=== PATIENT | male | born 1940 | race Caucasian/White ===

== ENCOUNTER 2016-07-09 14:58 | Inpatient (IN) | payer OTHER, BC ==
[2016-07-09] MEDS ORDERED: ACETAMINOPHEN 325 MG TAB PO PRN (17:47)
[2016-07-09] MEDS ORDERED: ONDANSETRON DISINTEGRATING 4 MG TAB PO PRN (17:47)
[2016-07-09] MEDS ORDERED: ONDANSETRON 4 MG/2 ML VIAL IVP PRN (17:47)
[2016-07-09] MEDS: NS 1,000 ML IV SCH (18:02)
--- NOTE | 2016-07-09 18:42 | GHP ---
[f rep st] HISTORY AND PHYSICAL DATE OF ADMISSION: 07/09/2016 CHIEF COMPLAINT: Weakness, elevated creatinine. HISTORY OF PRESENT ILLNESS: This is a 76-year-old male who [facility]. Sukhjinder lau has a history of metastatic melanoma and has been getting immunotherapy. He had this last week. E girma since then, he has been having poor p.o. intake, some diarrhea and nausea. He was seen today at the Cancer [facility]. His creatinine was 5 and sent here. He is denying any abdominal pain. He does h ave some decreased mental status here. He denies any focal weakness. No chest pain or shortness of breath. REVIEW OF SYSTEMS: A 10-point review of systems was negative. PAST MEDICAL HISTORY: 1. Malignant melanoma. 2. History of coronary artery disease, status post stenting a couple years ago. 3. History of pacemaker. 4. History of prostate cancer. 5. Parkinson's. SOCIAL HISTORY: No smoking. No alcohol. 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 He has a son and w royal who live in the area. FAMILY HISTORY: Mother had coronary disease at age 60. PHYSICAL EXAM: VITAL SIGNS: Afebrile. Blood pressure is 96/52, heart rate 61, oxygen saturation 97 % on room air. GENERAL: The patient is cachectic, in no apparent distress. HEENT: Nonicteric scle sayra. Extraocular movements intact. Dry mucous membranes. NECK: Supple. No thyromegaly. LUNGS: Good effort. Clear to auscultation bilaterally. CARDIOVASCULAR: Regular rate and rhythm. No murmu rs, rubs, or gallops. ABDOMEN: Positive bowel sounds. Soft, nontender, nondistended. Mild tendern ess in the lower quadrants. EXTREMITIES: No clubbing, cyanosis, or edema. SKIN: Without rash, oth erwise, intact. NEUROLOGIC: Alert and oriented, although very slow to answer questions. Looks like he might have a left facial droop. He has equal strength upper extremities. PSYCH: Normal mood. Flat affect. LABS: CBC shows a slight white count, at about an 11, hemoglobin 16, sodium 140, potassium 5.5, BUN is 105. Creatinine is 5.3. Total bilirubin was 1.6. Otherwise, LFTs are normal. ASSESSMENT: This is a 76-year-old male, who is undergoing chemotherapy due to metastatic melanoma, w anant presents with acute renal failure due to dehydration. PLAN: 1. Acute renal failure. This is most likely due to dehydration. Will give IV fluids. If his creat inine is not improving in the next day, could consider ultrasound. Would consider ultrasound. He do es have a history of prostate cancer. 2. Mild hyperkalemia that should improve with fluids. Will hold his JAQUELINE inhibitor. 3. Possible left facial droop. I think this could still be due to severe dehydration. We will see how he is in the next 12 hours. If there is no improvement, would consider MRI. 4. History of coronary artery disease. This appears to be quiescent. 5. Pacemaker. 6. Parkinson's. 7. Malignant melanoma. /[id number]/MODL
[2016-07-09] MEDS ORDERED: TEARS/DEXTRAN 70/HYPROMELLOSE 15 ML OPHT.BTL EACHEYE PRN (21:13)
[2016-07-09] MEDS: BRIMONIDINE/TIMOLOL 5 ML OPHT.BTL EACHEYE SCH (22:37)
[2016-07-09] MEDS: LATANOPROST 0.005% 2.5 ML OPHT DROPS EACHEYE SCH (22:38)
[2016-07-09] MEDS: DORZOLAMIDE 2% OPTH DROPS OP SCH (23:15)
[2016-07-09] MEDS: HEPARIN 5,000 UNIT/0.5 ML SYR SC SCH ×2 (23:15→23:27)
[2016-07-09] MEDS: BACLOFEN 10 MG TAB PO PRN (23:30)
[2016-07-10] MEDS: HEPARIN 5,000 UNIT/0.5 ML SYR SC SCH ×3 (05:19→21:26)
[2016-07-10] MEDS: NS 1,000 ML IV SCH (05:19)
[2016-07-10 05:59] LABS: ANION GAP 19 mEq/L (8-16); CALCIUM 7.9 mg/dL (8.5-10.4); CARBON DIOXIDE 10 mEq/l (22-31); CHLORIDE 112 mEq/L (97-110); CREATININE 3.7 mg/dL (0.7-1.3); GLOMERULAR FILTRATION RATE 16; GLUCOSE 50 mg/dL (70-100); MAGNESIUM 2.5 mg/dL (1.6-2.3); POTASSIUM 5.4 mEq/L (3.5-5.2); SODIUM 141 mEq/L (134-144)
[2016-07-10] MEDS ORDERED: D50W 25 GM/50 ML SYR IVP ONE (07:30)
[2016-07-10] MEDS: CETIRIZINE 10 MG TAB PO SCH (08:39)
[2016-07-10] MEDS: CARVEDILOL 25 MG TAB PO SCH ×2 (08:39→17:20)
[2016-07-10] MEDS: FOLIC ACID 1 MG TAB PO SCH (08:39)
[2016-07-10] MEDS: PSYLLIUM METAMUCIL 1 PKT PO SCH (08:39)
[2016-07-10] MEDS: DORZOLAMIDE 2% OPTH DROPS OP SCH ×3 (08:39→21:26)
[2016-07-10] MEDS: BRIMONIDINE/TIMOLOL 5 ML OPHT.BTL EACHEYE SCH ×2 (08:40→20:29)
[2016-07-10] MEDS ORDERED: NS 1,000 ML IV ONE (11:24)
[2016-07-10] MEDS ORDERED: D5W 1,000 ML IV SCH (12:00)
[2016-07-10] MEDS ORDERED: SODIUM BICARBONATE 100 MEQ in D5W 1,000 ML IV SCH (12:00)
--- NOTE | 2016-07-10 12:30 | GCON ---
[f rep st] CONSULTATION MEDICAL ONCOLOGY CONSULTATION. REASON FOR CONSULTATION: Patient with history of metastatic melanoma. HISTORY OF PRESENT ILLNESS: The patient is known to our department for management of his metastatic melanoma. He has recently completed 4 cycles of treatment with ipilimumab and nivolumab. The patien srinivasan's family had noted progressive lethargy and he was evaluated in the [facility] [place] office yesterday and found to be significantly volume depleted with a creatinine of 5.3. He w as therefore admitted to the hospital. At this point, I am unable to access his [facility] outpatient chart as to the deta ils of his metastatic melanoma. PAST MEDICAL HISTORY: The patient has a medical history of coronary artery disease status post intra coronary stenting, history of pacemaker placement, prostate cancer and history of Parkinson disease. SOCIAL HISTORY: He is and his former is at the bedside. His daughter has power of att orney. There is no history of tobacco or alcohol use. 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 FAMILY HISTORY: Notable for coronary artery disease - the patient's mother. REVIEW OF SYSTEMS: Difficult to obtain. Patient is somewhat uncooperative. PHYSICAL EXAMINATION: CONSTITUTIONAL: This is an elderly gentleman who looks somewhat older than hi s stated age, no acute distress. His ex- is at the bedside. He is alert but does not answer sim ple questions, and does not express ability to indicate his orientation. He is in no acute distress. HEENT: Shows pupils respond to light. Sclerae anicteric. Oral mucosa is dry but intact. CARDIAC: Shows regular rhythm. LUNGS: Alvarez clear. ABDOMEN: Soft, nontender without distention, mass or HSM. Bowel sounds normal. EXTREMITIES: Warm and well perfused. Pulses are strong. SKIN: There is markedly diminished skin t urgor. No peripheral edema. LABORATORY DATA: Today the patient has potassium of 5.4, chloride of 112, CO2 of 10, BUN of 94 and c reatinine of 3.7. His calcium is 7.9, phosphorus 6.0 and magnesium is 2.5. It should be noted that during my interview with the patient and evaluation of the patient, the physi humberto therapy team came by and the patient was fully cooperative, lucid and was able to ambulate down t he halls and respond to the physical therapist in an appropriate manner. He showed no difficulty in cooperating with his physical therapy. IMPRESSION: 1. Metastatic melanoma, having completed 4 cycles of immunotherapy with nivolumab plus ipilimumab, n ow presenting with significant volume depletion and acute renal failure effects including metabolic a cidosis, hyperphosphatemia and hyperkalemia. 2. History of coronary artery disease. 3. Status post pacemaker placement. 4. Volume depletion. 5. Discharge planning. 6. Code status. I alerted the patient's ex- to my concern about his status as to whether or not he is exhibiting more than just the effects of acute renal failure and dehydration. I will call the patient's tory perla who has power of car shakeout operator to alert her to his situation and discuss whether he would want full code status or not. He has a renal ultrasound ordered to evaluate for renal obstruction or obstructive u ropathy. It should be noted that with IV fluid, he has had urine output over the past 18 hours in [facility]. Will change his IV fluid to include bicarbonate given his metabolic acidosis. Will recheck electroly armando later today. Our service will follow in the hospital. We will try to define code status as to whether or not the patient and family would want full resusci tation should he have impairment of his vital signs. /[id number]/MODL
--- NOTE | 2016-07-10 14:54 | US ---
Complete Renal Ultrasound With Duplex Doppler Indication: Acute renal failure. Comparison: CT abdomen and pelvis, July 09, 2015. Findings: The kidneys are normal size. No hydronephrosis, shadowing renal calculi, or focal scarring . The echogenicity is normal. Renal measurements: Right: 11.4 cm long x 5.5 x 4.3 cm. Left: 10.5 cm long x 4.2 x 4.1 cm. Renal parenchymal thickness: Right: 1.2 cm Left: 1.5 cm Urinary bladder: Prevoid volume: 273 mL. Postvoid residual: Patient was unable to void upon request. Doppler Evaluation: RAR - Renal artery PSV/Aortic PSV ( Normal is < 3.5) Right: 3.1 Left: 1.89 Right kidney: Peak systolic velocities in the main renal artery as follows: Proximal: 223 cm/sec Mid: 73 cm/sec Distal: 43 cm/sec Segmental arterial flow: Normal waveforms and upstroke times. Resistive indices range between 0.71 and 0.78. Upstroke times range between 24 and 60 ms. Left kidney: Peak systolic velocities in the main renal artery as follows: Proximal: 138 cm/sec Mid: Not visualized. Distal: 73 cm/sec Segmental arterial flow: Normal waveforms and upstroke times. Resistive indices range between 0.76 and 0.79. Upstroke times range between 28 and 40 ms. Bilateral renal veins are patent with normal waveforms. Impression: 1. Moderate stenosis (approximately 50%) of the right renal artery origin evidenced by a peak systoli c velocity of 223 cm/sec. No tardus parvus waveform. 2. No evidence of left renal artery stenosis. 3. No hydronephrosis. Symmetric elevated resistive indices suggest underlying chronic medical renal d isease.
--- NOTE | 2016-07-10 14:54 | HOSPPROG ---
Hospitalist Progress Note Assessment/Plan: # [place] - suspected 2/2 volume depletion - creatinine 5.3 on admission- aggressively fluid resuscitated overnight creatinine 3.7 this morning oxygen saturations 96% on room air - continue aggressive fluid resuscitation # hyperkalemia- potassium 5.4 this morning- secondary to acute kidney injury - agree hold JAQUELINE-inhibitor - check EKG for acute changes # metabolic acidosis- secondary to acute kidney injury- worsening bicarbonate 10 this morning - agree with fluids with bicarb - follow BMP closely # metastatic melanoma- oncology following # coronary artery disease- no active chest pain - EKG previous ( personally reviewed and interpreted) 1st degree AV block with LVH and IVCD - continue home meds # prophylaxis with Lovenox # diet cardiac # disposition greater than 2 midnights as the patient requiring aggressive IV fluid resuscitation and acid-base correction I have discussed the case with the RN we will continue aggressive fluid resuscitation today and encourage oral intake Subjective: feels dehydrated Objective: Vital Signs Temp Pulse Resp BP Pulse Ox 36.6 C 69 16 118/61 96 07/10/16 13:17 07/10/16 13:17 07/10/16 13:17 07/10/16 13:17 07/10/16 13:17 07/09/16 07/10/16 07/11/16 05:59 05:59 05:59 Intake Total 1015 Output Total 300 Balance 715 - Physical Exam Constitutional: chronically ill appearing Eyes: anicteric sclera Ears, Nose, Mouth, Throat: dry mucous membranes Cardiovascular: regular rate and rhythym, systolic murmur Respiratory: no respiratory distress, no rales or rhonchi Gastrointestinal: normoactive bowel sounds Genitourinary: no bladder fullness Skin: warm, normal color Musculoskeletal: No asymmetric calves Neurologic: No AAOx3 Psychiatric: No agitated Lymph, Heme, Immunologic: no cervical LAD ICD10 Worksheet Patient Problems: Problems Problem Status Diagnosed Aortic valve insufficiency Acute Cardiomyopathy Acute Chest pain Acute
--- NOTE | 2016-07-10 15:33 | CPEKG ---
Heart Rate: 69 RR Interval: 870 P-R Interval: 241 QRSD Interval: 220 QT Interval: 552 QTC Interval: 592 P [place]: 0 QRS [place]: -85 T Wave [place]: 101 EKG Severity - ABNORMAL ECG - EKG Impression: A-V DUAL-PACED RHYTHM Electronically Signed By: Jose Sosa 10-Jul-2016 17:40:36
[2016-07-10 15:59] LABS: COLOR YELLOW; LEUKOCYTE ESTERASE,URINE NEGATIVE (NEGATIVE); NITRITE,URINE NEGATIVE (NEGATIVE)
[2016-07-10 16:18] LABS: MUCUS TRACE /lpf (NONE-1+)
[2016-07-10 17:40] LABS: BILIRUBIN-CONJUGATED 0.4 mg/dL (0.0-0.5); BILIRUBIN-UNCONJUGATED 0.6 mg/dL (0.0-1.1); TOTAL PROTEIN 6.3 g/dL (6.3-8.2)
[2016-07-10] MEDS: RED WINE 120 ML BOTTLE PO SCH (18:34)
[2016-07-10] MEDS: 1/2 NS IV SCH (20:24)
[2016-07-10] MEDS: SODIUM BICARBONATE IV SCH (20:24)
[2016-07-10] MEDS ORDERED: BIMATOPROST 0.01% 2.5 ML OPHT.BTL EACHEYE SCH (21:00)
[2016-07-10] MEDS: LATANOPROST 0.005% 2.5 ML OPHT DROPS EACHEYE SCH (21:26)
[2016-07-10] MEDS: DONEPEZIL HCL 5 MG TAB PO SCH (21:26)
[2016-07-11] MEDS: 1/2 NS IV SCH ×3 (03:34→15:23)
[2016-07-11] MEDS: SODIUM BICARBONATE IV SCH ×3 (03:34→15:23)
[2016-07-11 05:20] LABS: HEMATOCRIT 36.9 % (40.0-51.0); MEAN CELL HEMOGLOBIN 33.3 pg (27.9-34.1); MEAN CELL HEMOGLOBIN CONCENTR. 35.2 g/dL (32.4-36.7); MEAN CELL VOLUME 94.6 fL (81.5-99.8); RED BLOOD CELL COUNT 3.9 10^6/uL (4.40-6.38); RED CELL DISTRIBUTION WIDTH 11.7 % (11.5-15.2)
[2016-07-11] MEDS: HEPARIN 5,000 UNIT/0.5 ML SYR SC SCH ×3 (05:59→21:08)
[2016-07-11 09:29] LABS: ANION GAP 13 mEq/L (8-16); CALCIUM 7.6 mg/dL (8.5-10.4); CARBON DIOXIDE 18 mEq/l (22-31); CHLORIDE 111 mEq/L (97-110); CREATININE 1.9 mg/dL (0.7-1.3); GLOMERULAR FILTRATION RATE 35; GLUCOSE 80 mg/dL (70-100); POTASSIUM 4.3 mEq/L (3.5-5.2); SODIUM 142 mEq/L (134-144)
[2016-07-11] MEDS: MBX SOLN 30 ML BOTTLE PO PRN ×2 (09:43→13:52)
[2016-07-11] MEDS: DORZOLAMIDE 2% OPTH DROPS OP SCH ×3 (09:46→21:08)
[2016-07-11] MEDS: BRIMONIDINE/TIMOLOL 5 ML OPHT.BTL EACHEYE SCH ×2 (09:46→21:08)
[2016-07-11 09:56] LABS: CORTISOL-AM 3.6 ug/dL (4.5-22.7)
--- NOTE | 2016-07-11 10:00 | SOAPPROG ---
SOAP Progress Note Assessment/Plan: Assessment: 1. Metastatic melanoma (lung mets) s/p 4 cycles ipilimumab/nivolumab 2. Acute renal failure due to dehydration 3. Acidosis 4. Baseline dementia 5. Fever Renal function improving with IV fluids. Cause of his dehydration is unclear. He was having some diarrhea and was also on an JAQUELINE inhibitor. Need to consider adrenal insufficiency due to [place]. Hiccups also of unclear etiology. Might have esophagitis. 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 Begum 35 min spent w/ pt and in coordination of care. 07/11/16 09:57 Subjective: refractory hiccups. c/o "throat" pain but points to his chest. Objective: exam: chronically ill somnolent but arousable lungs CTAB CV RRR no MGR Abd: +BS NT ND Ext: no edema Vital Signs Temp Pulse Resp BP Pulse Ox 37.9 C 62 20 120/52 L 93 07/11/16 04:00 07/11/16 04:00 07/11/16 04:00 07/11/16 04:00 07/11/16 04:00 Laboratory Results 07/11/16 04:49 07/11/16 04:49 07/10/16 07/11/16 07/12/16 05:59 05:59 05:59 Intake Total 1015 2346 1782 Output Total 300 3200 Balance 715 -854 1782 ICD10 Worksheet Patient Problems: Problems Problem Status Diagnosed Aortic valve insufficiency Acute Cardiomyopathy Acute Chest pain Acute
[2016-07-11] MEDS: FOLIC ACID 1 MG TAB PO SCH (10:03)
[2016-07-11] MEDS: CARVEDILOL 25 MG TAB PO SCH ×2 (10:03→17:41)
[2016-07-11] MEDS: CETIRIZINE 10 MG TAB PO SCH (10:03)
[2016-07-11] MEDS: PSYLLIUM METAMUCIL 1 PKT PO SCH (10:03)
--- NOTE | 2016-07-11 12:02 | HOSPPROG ---
Hospitalist Progress Note Assessment/Plan: # [place] - suspected 2/2 volume depletion - creatinine 5.3 -> 1.9 this am- aggressively fluid resuscitated Since admission oxygen saturations 96% on room air - continue fluid resuscitation as p.o. intake is minimal # dysphagia- no oral lesions visualized- possible esophagitis versus acute infection - strep swab ordered - MBX initiated - start pantoprazole # hyperkalemia- improved potassium 4.3 this morning- EKG( personally reviewed and interpreted) av paced rhythm no peaked T-waves - continue hold JAQUELINE-inhibitor # Acute fever- 38.8 overnight- no new localizing symptoms- UA on admit negative- patient without cough or hypoxia - await strep swab - no empiric antibiotics # metabolic acidosis- secondary to acute kidney injury- improved bicarbonate 18 this morning - continue with fluids with bicarb - follow BMP closely # metastatic melanoma- oncology following- possible some side effects from outpatient treatment # coronary artery disease- no active chest pain - - continue home meds # Alcohol use- patient drinks a bottle of wine a day- monitor closely for withdrawal # prophylaxis with Lovenox # diet - taking very little p. o. secondary to burning throat pain # disposition greater than 2 midnights as the patient requiring aggressive IV fluid resuscitation and acid-base correction I have discussed the case with the RN we will continue aggressive fluid resuscitation today and encourage oral intake Subjective: burning pain with swallowing Objective: Vital Signs Temp Pulse Resp BP Pulse Ox 36.6 C 57 L 14 114/48 L 94 07/11/16 08:00 07/11/16 08:00 07/11/16 08:00 07/11/16 08:00 07/11/16 08:00 Laboratory Results 07/11/16 04:49 07/11/16 04:49 07/10/16 07/11/16 07/12/16 05:59 05:59 05:59 Intake Total 1015 2346 1782 Output Total 300 3200 Balance 715 -854 1782 - Physical Exam Constitutional: chronically ill appearing Eyes: anicteric sclera Ears, Nose, Mouth, Throat: dry mucous membranes Cardiovascular: regular rate and rhythym, systolic murmur Respiratory: no respiratory distress, no rales or rhonchi Gastrointestinal: normoactive bowel sounds, soft, non-tender abdomen Genitourinary: no bladder fullness Skin: warm, normal color Musculoskeletal: No asymmetric calves Neurologic: No AAOx3 Psychiatric: depressed, flat affect Lymph, Heme, Immunologic: no cervical LAD ICD10 Worksheet Patient Problems: Problems Problem Status Diagnosed Aortic valve insufficiency Acute Cardiomyopathy Acute Chest pain Acute
[2016-07-11] MEDS: PANTOPRAZOLE SODIUM 40 MG in NS 100 ML IV SCH (13:53)
[2016-07-11] MEDS: RED WINE 120 ML BOTTLE PO SCH (17:41)
[2016-07-11] MEDS: DONEPEZIL HCL 5 MG TAB PO SCH (21:08)
[2016-07-11] MEDS: LATANOPROST 0.005% 2.5 ML OPHT DROPS EACHEYE SCH (21:08)
[2016-07-12] MEDS: 1/2 NS IV SCH (03:01)
[2016-07-12] MEDS: SODIUM BICARBONATE IV SCH (03:01)
[2016-07-12 05:07] LABS: HEMATOCRIT 37.7 % (40.0-51.0); HEMOGLOBIN 12.9 g/dL (13.7-17.5); MEAN CELL HEMOGLOBIN 33.1 pg (27.9-34.1); MEAN CELL HEMOGLOBIN CONCENTR. 34.2 g/dL (32.4-36.7); MEAN CELL VOLUME 96.7 fL (81.5-99.8); RED BLOOD CELL COUNT 3.9 10^6/uL (4.40-6.38); RED CELL DISTRIBUTION WIDTH 11.8 % (11.5-15.2)
[2016-07-12 05:29] LABS: ANION GAP 14 mEq/L (8-16); CALCIUM 7.5 mg/dL (8.5-10.4); CARBON DIOXIDE 25 mEq/l (22-31); CHLORIDE 108 mEq/L (97-110); CREATININE 1.6 mg/dL (0.7-1.3); GLOMERULAR FILTRATION RATE 42; GLUCOSE 82 mg/dL (70-100); POTASSIUM 4.2 mEq/L (3.5-5.2); SODIUM 147 mEq/L (134-144)
[2016-07-12] MEDS: HEPARIN 5,000 UNIT/0.5 ML SYR SC SCH ×3 (06:31→20:28)
[2016-07-12] MEDS: FOLIC ACID 1 MG TAB PO SCH (10:09)
[2016-07-12] MEDS: MBX SOLN 30 ML BOTTLE PO PRN (10:09)
[2016-07-12] MEDS: CETIRIZINE 10 MG TAB PO SCH (10:09)
[2016-07-12] MEDS: PANTOPRAZOLE SODIUM 40 MG in NS 100 ML IV SCH ×2 (10:10→20:28)
[2016-07-12] MEDS: DORZOLAMIDE 2% OPTH DROPS OP SCH ×3 (10:10→20:35)
[2016-07-12] MEDS: BRIMONIDINE/TIMOLOL 5 ML OPHT.BTL EACHEYE SCH ×2 (10:10→20:35)
[2016-07-12] MEDS: CARVEDILOL 25 MG TAB PO SCH ×2 (10:11→17:47)
[2016-07-12] MEDS: PSYLLIUM METAMUCIL 1 PKT PO SCH (10:41)
--- NOTE | 2016-07-12 12:05 | SOAPPROG ---
SOAP Progress Note Assessment/Plan: Assessment: 1. Metastatic melanoma (lung mets) s/p 4 cycles ipilimumab/nivolumab 2. Acute renal failure due to dehydration 3. Acidosis 4. Baseline dementia 5. Fever Renal function improving with IV fluids. His mental status is improving. The hiccups and odynophagia are somewhat unexplained. Esophagitis has been described as a rare (<1%) side effect of ipilimumab. His AM cortisol was mildly low - likely adrenal insufficency is not the driving factor here. Plan: - continue IV fluids - zofran for hiccups - PPI - consider EGD if symptoms are not improving. MRI to look for JUVENILE OFFICER disease could also be considered, though that is less likely. 35 min spent w/ pt, dtr, and in coordination of care. Subjective: feeling better today, but still has significant odynophagia and hiccups. Objective: exam: Gen: tired appearing, but more alert than yesterday Lungs CTAB CV RRR no MGR Abd: +BS NT nD Ext: no edema Vital Signs Temp Pulse Resp BP Pulse Ox 37.7 C 60 18 124/54 H 91 L 07/12/16 11:33 07/12/16 11:33 07/12/16 11:33 07/12/16 11:33 07/12/16 11:33 Laboratory Results 07/12/16 04:48 07/12/16 04:48 07/11/16 07/12/16 07/13/16 05:59 05:59 05:59 Intake Total 7846 5293 Output Total 3200 1400 Balance -854 3893 ICD10 Worksheet Patient Problems: Problems Problem Status Diagnosed Aortic valve insufficiency Acute Cardiomyopathy Acute Chest pain Acute
--- NOTE | 2016-07-12 12:27 | HOSPPROG ---
Hospitalist Progress Note Assessment/Plan: # [place] - suspected 2/2 volume depletion - creatinine 5.3 -> 1.6 this am- aggressively fluid resuscitated Since admission oxygen saturations 94% on room air - continue fluid resuscitation as p.o. intake is minimal # Odynophagia- no oral lesions visualized- patient taking more p.o. today- however with marked discomfort after initiating swallow possible esophagitis - strep a negative - continue MBX - increase pantoprazole to BID # hyperkalemia- improved potassium 4.3 this morning- EKG ( personally reviewed and interpreted) av paced rhythm no peaked T-waves - continue hold JAQUELINE-inhibitor # Acute fever- Tm 38.8 overnight- no recurrence - no new localizing symptoms- UA on admit negative- patient without cough or hypoxia - no empiric antibiotics - continue to clinically monitor # metabolic acidosis- secondary to acute kidney injury- normal bicarbonate 25 this morning - change IV fluids from bicarb containing to normal saline alone - follow BMP closely # metastatic melanoma- oncology following- possible some side effects from outpatient treatment # coronary artery disease- no active chest pain - - continue home meds # Alcohol use- patient drinks a bottle of wine a day- monitor closely for withdrawal # prophylaxis with Lovenox # diet - taking increased p. o. today # disposition -greater than 2 midnights as the patient requiring aggressive IV fluid resuscitation and acid-base correction I have discussed the case with oncology will continue to treat with twice daily PPI and hydration follow acid base and renal function Subjective: tolerating more p.o. still remains very painful Objective: Vital Signs Temp Pulse Resp BP Pulse Ox 37.7 C 60 18 124/54 H 91 L 07/12/16 11:33 07/12/16 11:33 07/12/16 11:33 07/12/16 11:33 07/12/16 11:33 Laboratory Results 07/12/16 04:48 07/12/16 04:48 07/11/16 07/12/16 07/13/16 05:59 05:59 05:59 Intake Total 2346 5293 Output Total 3200 1400 Balance -854 3893 - Physical Exam Constitutional: chronically ill appearing Eyes: anicteric sclera Ears, Nose, Mouth, Throat: moist mucous membranes Cardiovascular: regular rate and rhythym, systolic murmur Respiratory: no respiratory distress, no rales or rhonchi Gastrointestinal: normoactive bowel sounds, soft, non-tender abdomen Genitourinary: no bladder fullness Skin: warm, normal color Musculoskeletal: No asymmetric calves Neurologic: AAOx3 Psychiatric: interacting appropriately Lymph, Heme, Immunologic: no cervical LAD ICD10 Worksheet Patient Problems: Problems Problem Status Diagnosed Aortic valve insufficiency Acute Cardiomyopathy Acute Chest pain Acute
[2016-07-12] MEDS: RED WINE 120 ML BOTTLE PO SCH (19:07)
[2016-07-12] MEDS: DONEPEZIL HCL 5 MG TAB PO SCH (20:28)
[2016-07-12] MEDS: NS 1,000 ML IV SCH (20:35)
[2016-07-12] MEDS: LATANOPROST 0.005% 2.5 ML OPHT DROPS EACHEYE SCH (20:35)
[2016-07-13] MEDS: HEPARIN 5,000 UNIT/0.5 ML SYR SC SCH ×3 (05:21→20:32)
[2016-07-13] MEDS: NS 1,000 ML IV SCH (05:21)
[2016-07-13 09:30] LABS: ANION GAP 9 mEq/L (8-16); CALCIUM 7.4 mg/dL (8.5-10.4); CARBON DIOXIDE 23 mEq/l (22-31); CHLORIDE 115 mEq/L (97-110); CREATININE 1.4 mg/dL (0.7-1.3); GLOMERULAR FILTRATION RATE 49; GLUCOSE 79 mg/dL (70-100); POTASSIUM 4.2 mEq/L (3.5-5.2); SODIUM 147 mEq/L (134-144)
[2016-07-13] MEDS: MBX SOLN 30 ML BOTTLE PO PRN ×2 (10:34→15:09)
[2016-07-13] MEDS: CETIRIZINE 10 MG TAB PO SCH (11:02)
[2016-07-13] MEDS: FOLIC ACID 1 MG TAB PO SCH (11:03)
[2016-07-13] MEDS: BACLOFEN 10 MG TAB PO PRN (11:15)
[2016-07-13] MEDS: CARVEDILOL 25 MG TAB PO SCH ×2 (11:16→17:06)
[2016-07-13] MEDS: PANTOPRAZOLE SODIUM 40 MG in NS 100 ML IV SCH (11:18)
[2016-07-13] MEDS: PSYLLIUM METAMUCIL 1 PKT PO SCH (11:18)
[2016-07-13] MEDS: DORZOLAMIDE 2% OPTH DROPS OP SCH ×3 (11:28→20:33)
[2016-07-13] MEDS: BRIMONIDINE/TIMOLOL 5 ML OPHT.BTL EACHEYE SCH ×2 (11:28→20:33)
--- NOTE | 2016-07-13 13:46 | SOAPPROG ---
SOAP Progress Note Assessment/Plan: Assessment: - Metastatic melanoma (lung mets) s/p 4 cycles ipilimumab/nivolumab - status of disease is unclear at this time. - Acute renal failure due to dehydration - Cr now down to 1.4. - Baseline dementia - Fever - unclear etiology - infection vs. tumor vs. interstitial pneumonitis - Sundowning - Ex notes that he has more trouble in the PM. 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 He is to see his digital media sales consultant today - Pacemaker dependent cardiac arrhythmia We may be able to gain substantial information from a non-contrast CT of the chest to evaluate his fever, look for immunotherapy toxicity, and assess that status of his metastatic disease. Plan: - ophth eval - non contrast CT of the chest - continue rx of esophagitis (GI consult?) - hydration Subjective: No new complaints voiced Objective: Vital Signs Temp Pulse Resp BP Pulse Ox 36.6 C 85 16 136/72 H 93 07/13/16 12:00 07/13/16 12:00 07/13/16 12:00 07/13/16 12:00 07/13/16 12:00 Laboratory Results 07/12/16 04:48 07/13/16 08:57 07/11/16 07/12/16 07/13/16 23:59 23:59 23:59 Intake Total 3663 2730 1325 Output Total 2600 1100 750 Balance 1063 1630 575 Physical Exam - Physical Exam General Appearance: other (sitting in the wheelchair) Skin: pallor ICD10 Worksheet Patient Problems: Problems Problem Status Diagnosed Aortic valve insufficiency Acute Cardiomyopathy Acute Chest pain Acute
--- NOTE | 2016-07-13 15:13 | HOSPPROG ---
Hospitalist Progress Note Assessment/Plan: # [place] - suspected 2/2 volume depletion - creatinine 5.3 -> 1.4 this am- aggressively fluid resuscitated Since admission oxygen saturations 93% on room air - continue fluid resuscitation until PO improved- suspect likely later today # Odynophagia- no oral lesions visualized- patient taking more p.o. today- improving on PPI possible esophagitis - strep a negative - continue MBX - Continue pantoprazole to BID # hyperkalemia- resolved- EKG ( personally reviewed and interpreted) av paced rhythm no peaked T-waves - continue hold JAQUELINE-inhibitor # Acute fever- Tm 38.1 overnigh - no new localizing symptoms- UA on admit negative- blood cultures no growth - group a strep negative - no empiric antibiotics - continue to clinically monitor # metabolic acidosis- secondary to acute kidney injury- normal bicarbonate 23 this morning - suspect can DC IV fluids today - follow BMP closely # metastatic melanoma- oncology following- possible some side effects from outpatient treatment # coronary artery disease- no active chest pain - - continue home meds # Alcohol use- patient drinks a bottle of wine a day- monitor closely for withdrawal # prophylaxis with Lovenox # diet - taking increased p. o. today # disposition -greater than 2 midnights working on rehab placement potentially for tomorrow I have discussed the case with RN- can transition off IV fluids this patient' s oral intake adequate Subjective: tolerating more po Objective: Vital Signs Temp Pulse Resp BP Pulse Ox 36.6 C 85 16 136/72 H 93 07/13/16 12:00 07/13/16 12:00 07/13/16 12:00 07/13/16 12:00 07/13/16 12:00 Laboratory Results 07/12/16 04:48 07/13/16 08:57 07/12/16 07/13/16 07/14/16 05:59 05:59 05:59 Intake Total 5293 1000 1325 Output Total 1400 1400 450 Balance 3893 -400 875 - Physical Exam Constitutional: chronically ill appearing Eyes: anicteric sclera Ears, Nose, Mouth, Throat: dry mucous membranes Cardiovascular: regular rate and rhythym Respiratory: no respiratory distress, no rales or rhonchi Gastrointestinal: normoactive bowel sounds, soft, non-tender abdomen Genitourinary: no bladder fullness Skin: warm, normal color Musculoskeletal: No asymmetric calves Neurologic: AAOx3 Psychiatric: interacting appropriately, not anxious Lymph, Heme, Immunologic: no cervical LAD ICD10 Worksheet Patient Problems: Problems Problem Status Diagnosed Aortic valve insufficiency Acute Cardiomyopathy Acute Chest pain Acute
--- NOTE | 2016-07-13 17:10 | CT ---
CT Scan of the Chest (Without Contrast) Clinical Indications: Follow up metastatic melanoma. Technique: Multidetector helical CT was performed from the superior thoracic inlet to the diaphragm. No intravenous contrast was given. The radiologist manipulated images at the computer workstation. Dose reduction techniques were utilized. Comparison: CT January 13, 2016. [facility] PET study February 28, 2016. CT chest February 19, 2016. Findings: The right upper lobe is clear. The right middle lobe nodule, previously measuring 6 x 6 m m on the January 13, 2016 study now measures 2 mm, series #4, image #191. There is a very small effusio n and some patchy nodular change at the left base and in the anteroinferior right middle lobe. This is a nonspecific appearance. A densely calcified nodule is again seen in the left upper lobe, series #4, image #42. The dominant mass in the left lower lobe that previously measured 30 x 33 mm on the January 13, 2016 study now measures 14 x 15 mm. The left lower lobe lateral pleural-based nodule seen o n series #4, image #193, today measures 6.5 x 6.0 cm, series #4, image #93, previously measuring 7.1 x 5.7. The more medial nodule is slightly obscured on today's examination but is probably the area o f nodularity or consolidation seen on series #4, image #196, measuring 7 x 10 mm, previously measurin g 11 x 11 mm. Some patchy atelectatic change is present at the base. Comparison to the PET from February 28, 2016 also shows interval response to therapy. The heart size remains mildly globally enlarged. Dual-lead pacer is unchanged. Aortic luminal diame ter is ectatic at 41 mm. The aortic arch and descending thoracic aorta are unremarkable. Limited ex amination of the upper abdomen is grossly unremarkable. Impressions 1. Overall significant interval response to therapy compared to the January 13, 2016 CT and the PET sca n from February 28, 2016. 2. Patchy basilar mild atelectatic or consolidative changes, minimally increased from the prior PET scan. E:BRITTNEY/galina
[2016-07-13] MEDS: RED WINE 120 ML BOTTLE PO SCH (20:01)
[2016-07-13] MEDS: PANTOPRAZOLE SODIUM 40 MG TAB PO SCH (20:32)
[2016-07-13] MEDS: DONEPEZIL HCL 5 MG TAB PO SCH (20:32)
[2016-07-13] MEDS: LATANOPROST 0.005% 2.5 ML OPHT DROPS EACHEYE SCH (20:33)
[2016-07-14] MEDS: HEPARIN 5,000 UNIT/0.5 ML SYR SC SCH ×3 (05:49→20:25)
[2016-07-14] MEDS: CARVEDILOL 25 MG TAB PO SCH (09:56)
[2016-07-14] MEDS: FOLIC ACID 1 MG TAB PO SCH (09:56)
[2016-07-14] MEDS: PANTOPRAZOLE SODIUM 40 MG TAB PO SCH ×2 (09:56→20:25)
[2016-07-14] MEDS: BRIMONIDINE/TIMOLOL 5 ML OPHT.BTL EACHEYE SCH ×2 (09:57→20:25)
[2016-07-14] MEDS: CETIRIZINE 10 MG TAB PO SCH (10:00)
[2016-07-14] MEDS: DORZOLAMIDE 2% OPTH DROPS OP SCH ×3 (10:01→20:26)
--- NOTE | 2016-07-14 10:06 | SOAPPROG ---
CELINA Progress Note Assessment/Plan: Assessment: - Metastatic melanoma (lung mets) s/p 4 cycles ipilimumab/nivolumab - non contrast chest CT shows improvement. This is a good sign at this early evaluation point - Acute renal failure due to dehydration - Cr from today is pending. - Baseline dementia - I do not think he is able to live independently at this time without additional assistance. - Fever - has not recurred. - own - Ex notes that he has more trouble in the PM. - Esophagitis - unclear etiology but is improving. He was able to eat toast last night. 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 Saw ophth yesterday. - Pacemaker dependent cardiac arrhythmia Plan: - The biggest issue is really psychosocial. In view of his response on CT from the oncologic viewpoint, I would continue nivolumab IV every 2 weeks to progression or unacceptable toxicity. He does need additional support as an outpatient to ensure adequate PO intake. Subjective: No complaints. 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 Objective: Vital Signs Temp Pulse Resp BP Pulse Ox 36.4 C 69 20 130/59 H 95 07/14/16 07:30 07/14/16 07:30 07/14/16 07:30 07/14/16 07:30 07/14/16 07:30 Laboratory Results 07/12/16 04:48 07/13/16 08:57 07/12/16 07/13/16 07/14/16 23:59 23:59 23:59 Intake Total 2730 1325 100 Output Total 1100 2250 400 Balance 1630 -925 -300 Physical Exam - Physical Exam General Appearance: alert, no apparent distress Respiratory: lungs clear Cardiac/Chest: regular rate, rhythm Skin: other (turgor better) ICD10 Worksheet Patient Problems: Problems Problem Status Diagnosed Aortic valve insufficiency Acute Cardiomyopathy Acute Chest pain Acute
[2016-07-14] MEDS: PSYLLIUM METAMUCIL 1 PKT PO SCH (10:14)
[2016-07-14 10:36] LABS: HEMATOCRIT 36.8 % (40.0-51.0); HEMOGLOBIN 12.3 g/dL (13.7-17.5); MEAN CELL HEMOGLOBIN 33.2 pg (27.9-34.1); MEAN CELL HEMOGLOBIN CONCENTR. 33.4 g/dL (32.4-36.7); MEAN CELL VOLUME 99.5 fL (81.5-99.8); RED BLOOD CELL COUNT 3.7 10^6/uL (4.40-6.38); RED CELL DISTRIBUTION WIDTH 11.8 % (11.5-15.2)
[2016-07-14 10:57] LABS: ANION GAP 8 mEq/L (8-16); CALCIUM 7.8 mg/dL (8.5-10.4); CARBON DIOXIDE 25 mEq/l (22-31); CHLORIDE 114 mEq/L (97-110); CREATININE 1.5 mg/dL (0.7-1.3); GLOMERULAR FILTRATION RATE 45; GLUCOSE 90 mg/dL (70-100); POTASSIUM 4.4 mEq/L (3.5-5.2); SODIUM 147 mEq/L (134-144)
--- NOTE | 2016-07-14 11:28 | PDIAF ---
- Diagnosis Diagnosis: corinne Code Status: Full Code - Medication Management Discharge Medications: Medications to Continue on Transfer Brimonidine/Timolol [Combigan (*)] 1 ml EACHEYE BID 11/20/14 [Last Taken 08:00] Cetirizine [ZyrTEC 10 mg (*)] 10 mg PO DAILY 11/20/14 [Last Taken 11/20/14] Donepezil HCl [Aricept 5 MG (*)] 5 mg PO HS 11/20/14 [Last Taken 11/19/14] Fluticasone Nasal [Flonase Nasal [place]] 2 sprays NASAL DAILY PRN 11/20/14 [Last Taken Unknown] Folic Acid [Folic Acid 1 MG (*)] 0.8 mg PO DAILY 11/20/14 [Last Taken 11/20/14] Psyllium Husk (with Sugar) [Metamucil Packet] 1 each PO DAILY@0730 11/20/14 [ Last Taken 11/20/14] Magnesium Oxide [Magnesium Oxide 400 mg (*)] 250 mg PO HS 02/12/16 [Last Taken Unknown] Carboxymethylcellulose Sodium [Thera Tears] 1 each OP DAILY PRN 07/09/16 [Last Taken Unknown] Carvedilol [Coreg (*)] 25 mg PO BIDMEAL 07/09/16 [Last Taken Unknown] Chemo 1 ea IV Q21D 07/09/16 [Last Taken Unknown] Dorzolamide 2% [Trusopt 2% (*)] 1 drops OP TID 07/09/16 [Last Taken Unknown] Latanoprost 0.005% [Xalatan 0.005% (*)] 1 drops EACHEYE HS 07/09/16 [Last Taken Unknown] Baclofen [Baclofen 10 mg (*)] 10 mg PO TID PRN #0 tab 07/14/16 [Last Taken Unknown] Pantoprazole Sodium [Protonix 40mg (*)] 40 mg PO BID #30 tab 07/14/16 [Last Taken Unknown] Discharge Medications: Refer to the Discharge Home Medication list for PRN reason. - Orders Services needed: Registered Nurse, Physical Therapy, Occupational Therapy Diet Recommendation: no restrictions on diet Diet Texture: Regular Texture Diet - Labs/Radiology BMP Date: 07/17/16 (creatinine check) - Follow Up Care Current Providers and Referrals: Howard Summers [Primary Care Provider] -
[2016-07-14] MEDS ORDERED: MIDAZOLAM 2 MG/2 ML VIAL ONE (16:03)
[2016-07-14] MEDS ORDERED: fentaNYL 100 MCG/2 ML INJ ONE (16:03)
--- NOTE | 2016-07-14 16:33 | GCON ---
[f rep st] CONSULTATION REFERRING PHYSICIAN: Maritza Begum MD REASON FOR CONSULTATION: Odynophagia and dysphagia. HISTORY OF PRESENT ILLNESS: Briefly, Mr. Lowery is a pleasant 76-year-old male with a history of metastatic melanoma, who presented to the hospital for admission on 07/09/2016. At that time, he was describing weakness and was found to have acute renal failure. He has been getting immunotherapy for metastatic melanoma. He had his last infusion the week prior to his admission. He has had some poor p.o. intake, diarrhea, and nausea. [facility] and was noted to have a creatinine of 5, and sent to the emergency room for additional evaluation. His family also has noticed he has had some change in his mental status. While in the hospital, he described difficulty swallowing, as well as painful swallowing. It is possible that this is part of why he had some decreased p.o. intake and developed dehydration. There is no longstanding history of dysphagia, odynophagia, or reflux. In general, he has had a poor appetite, but has been able to chew and swallow. He has not been on any outpatient acid reduction therapies chronically. He has not been on any outpatient barrier breakers, such as chronic nonsteroidal therapy. PAST MEDICAL HISTORY: Includes malignant melanoma, history of coronary disease for which he has had stenting. He has a history of pacemaker. He has had prostate cancer, and he has underlying mild Parkinson's. SOCIAL HISTORY: He does not drink, smoke, or use drugs. 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 There are some reports from the family that maybe he has been drinking alcohol daily. FAMILY HISTORY: Positive for coronary disease. MEDICATIONS: Tylenol, baclofen, Combigan, Coreg, Zyrtec, Aricept, Trusopt, folic acid, Xalatan, Maalox, Zofran, Protonix. REVIEW OF SYSTEMS: A complete 10 system review was undertaken with the patient and is negative, except for those details described in history of present illness. PHYSICAL EXAM: GENERAL: This is a well-developed male, in no apparent distress. HEENT: His pupils are equally round, reactive to light and accommodation. His sclerae are nonicteric. His oropharynx is clear. NECK: Supple. HEART: Regular without murmur. LUNGS: Clear to auscultation. ABDOMEN : Soft, nontender. He has normoactive bowel sounds. EXTREMITIES: Free of cyanosis, clubbing, edema. NEURO: Grossly nonfocal, although he has somewhat tardive dyskinesia and mild degree of masked facies. His joints are without swelling. SKIN: Warm and dry. PSYCH: Reveals normal mood and affect. LABORATORY: Shows a white count of 6.2, hemoglobin of 12.3, hematocrit of 36.8 , platelet count of 141. Sodium of 147, potassium of 4.4, chloride 114, bicarb of 25, BUN of 16, creatinine of 1.5. This is an improvement from an outpatient creatinine prior to admission of 5. IMPRESSION AND PLAN: Mr. Lowery has had the onset of dehydration. This may be result of decreased p.o. intake. He has had symptoms of odynophagia and dysphagia as observed by the medical staff and his family. The differential diagnosis includes mucositis, fungal esophagitis, viral esophagitis, reflux esophagitis, or motility disturbance in setting of underlying parkinson's. Primary motility disorders are possible, such as Achalasia may also be possible. His symptoms are somewhat difficult to characterize and he may have some component of transfer dysphagia as well. In order to resolve this differential diagnosis, I recommend he undergo upper endoscopy. In addition, speech pathology with video swallow may be useful. Meanwhile, he should remain on a proton pump inhibitor. We will consider additional evaluation pending the results of his upper endoscopy. /[id number]/MODL MTDD
--- NOTE | 2016-07-14 16:56 | SUROPNOTE ---
SANDIE Operative Report - Surgery BRIEF EGD NOTE (full not to follow) EGD indication: odynophagia, dysphagia medication: 2mg versed, 50mcg fentanyl complications: none acutely findings 1. upper/mid esophagus nl - bx'd 2. lower esophageal stenosis - dilated with 54Fr Savary 3. mild gastritis - bx'd 4. small duodenal ulcer in 1st portion of duodenum - bx'd 5. distal duodenum nl IMPRESSION/RECS: 1. dysphagia - maybe multifactorial - not sure stenosis explains entire symptom complex - if symptoms not improved after dilation, would proceed with video swallow - may have some component of transfer dysphagia as well as esophageal dysphagia 2. odynophagia - sx may have resolved - no significant esophagitis noted 3. duodenal ulcer - incidental finding - likely unrelated to presenting complaints - recommend ppi qd - await gastric bx related to h.pylori - check serum h.pylori and treat if positive - avoid NSAIDs if possible
--- NOTE | 2016-07-14 19:09 | GPN ---
[f rep st] PROCEDURE NOTE PROCEDURE: Upper endoscopy. INDICATIONS: Odynophagia and dysphagia. MEDICATIONS USED: 2 mg of Versed, 100 mcg of fentanyl. COMPLICATIONS: None acutely. DESCRIPTION OF PROCEDURE: After informed consent was obtained, the patient was placed in the left la teral decubitus position. The forward viewing upper endoscope was advanced through the mouth, into t he proximal duodenal. Retroflex views in the gastric cardia were obtained. FINDINGS: 1. The upper and middle esophagus appeared normal. Biopsies were done to rule out eosinophilic esop hagitis. 2. There was a stenosis in the distal esophagus close to the GE junction. This was dilated with a 5 4-[place] Savary dilator. The appearance was consistent with a Schatzki ring, although alternate etio logies such as reflux-induced stricturing are possible. 3. There was mild gastritis throughout the lining of the stomach, biopsies were obtained to rule out Helicobacter pylori. 4. There was a small duodenal ulcer present in the first portion of the duodenum. This was bland in appearance without any evidence of bleeding. Biopsies were obtained of the ulcer to rule out malign barb. The remainder of the duodenum appeared normal. IMPRESSION AND RECOMMENDATIONS: No clear explanation today for odynophagia. His odynophagia symptom s may be a manifestation of poor motility and initiation of swallowing. Dysphagia symptoms may be ex plained by his esophageal stricture. Biopsies of the esophagus and dilation of the stricture will he lp resolve the differential diagnosis for that stenosis. Duodenal ulcer and gastritis were somewhat incidental findings relative to the patient's primary complaints, but remain important. Biopsies are pending. 1. It is okay to advance the patient's diet and monitor his swallowing. 2. He should remain on proton pump inhibitor. 3. We will await biopsy results. 4. We will check Helicobacter pylori stool or blood testing to corroborate biopsy results given the setting of ulcer. 5. Pending his swallowing, we could consider additional evaluation with Speech Pathology. I suspect he has some degree of transfer dysphagia or difficulty initiating swallows that may also be impairin g his swallowing. /[id number]/MODL
[2016-07-14] MEDS: RED WINE 120 ML BOTTLE PO SCH (19:10)
[2016-07-14] MEDS: DONEPEZIL HCL 5 MG TAB PO SCH (20:25)
[2016-07-14] MEDS: LATANOPROST 0.005% 2.5 ML OPHT DROPS EACHEYE SCH (20:25)
--- NOTE | 2016-07-14 20:32 | HOSPPROG ---
Hospitalist Progress Note Assessment/Plan: # [place] - suspected 2/2 volume depletion - creatinine 5.3 -> 1.5 this am- aggressively fluid resuscitated Since admission oxygen saturations 93% on room air renal function stable overnight without supplemental PO - cont to follow # Odynophagia- no oral lesions visualized- improving on PPI -patient with more diffiuclty taking PO today possible esophagitis - strep a negative - continue MBX - Continue pantoprazole to BID - consulting GI for EGD - will also consult SUPERVISOR SHOP for aspiration eval # hyperkalemia- resolved- EKG ( personally reviewed and interpreted) av paced rhythm no peaked T-waves - continue hold JAQUELINE-inhibitor # Acute fever-no fever overnight - no new localizing symptoms- UA on admit negative- blood cultures no growth - group a strep negative CT chest (personally reviewed and interpreted) no infiltrates improved intrapulmonary nodules - no empiric antibiotics - continue to clinically monitor # metabolic acidosis- secondary to acute kidney injury- normal bicarbonate 25 this morning - suspect can DC IV fluids today - follow BMP closely # metastatic melanoma- oncology following- possible some side effects from outpatient treatment # coronary artery disease- no active chest pain - - continue home meds # Alcohol use- patient drinks a bottle of wine a day- monitor closely for withdrawal # prophylaxis with Lovenox # diet - taking increased p. o. today- wait for EGD eval # disposition -greater than 2 midnights working on rehab placement potentially for tomorrow I have discussed the case with Dr. Orr - will perform EGD to eval for esophagitis Subjective: still pain with swallowing Objective: Vital Signs Temp Pulse Resp BP Pulse Ox 37.1 C 60 18 137/69 H 93 07/14/16 19:52 07/14/16 19:52 07/14/16 19:52 07/14/16 19:52 07/14/16 19:52 Laboratory Results 07/14/16 10:31 07/14/16 10:31 07/13/16 07/14/16 07/15/16 05:59 05:59 05:59 Intake Total 1000 1425 Output Total 1400 2350 100 Balance -400 -925 -100 - Physical Exam Constitutional: chronically ill appearing Eyes: anicteric sclera Ears, Nose, Mouth, Throat: moist mucous membranes Cardiovascular: regular rate and rhythym Respiratory: no respiratory distress, no rales or rhonchi Gastrointestinal: normoactive bowel sounds, soft, non-tender abdomen Genitourinary: no bladder fullness Skin: warm, normal color Musculoskeletal: No asymmetric calves Neurologic: AAOx3 Psychiatric: interacting appropriately, not anxious Lymph, Heme, Immunologic: no cervical LAD ICD10 Worksheet Patient Problems: Problems Problem Status Diagnosed Aortic valve insufficiency Acute Cardiomyopathy Acute Chest pain Acute
[2016-07-15] MEDS: NS 1,000 ML IV SCH (01:51)
[2016-07-15 05:33] LABS: HEMATOCRIT 34.6 % (40.0-51.0); HEMOGLOBIN 11.6 g/dL (13.7-17.5); MEAN CELL HEMOGLOBIN 33.9 pg (27.9-34.1); MEAN CELL HEMOGLOBIN CONCENTR. 33.5 g/dL (32.4-36.7); MEAN CELL VOLUME 101.2 fL (81.5-99.8); RED BLOOD CELL COUNT 3.42 10^6/uL (4.40-6.38); RED CELL DISTRIBUTION WIDTH 11.7 % (11.5-15.2)
[2016-07-15] MEDS: HEPARIN 5,000 UNIT/0.5 ML SYR SC SCH ×2 (06:02→13:57)
[2016-07-15 06:06] LABS: ANION GAP 9 mEq/L (8-16); CALCIUM 7.2 mg/dL (8.5-10.4); CARBON DIOXIDE 23 mEq/l (22-31); CHLORIDE 115 mEq/L (97-110); CREATININE 1.4 mg/dL (0.7-1.3); GLOMERULAR FILTRATION RATE 49; GLUCOSE 81 mg/dL (70-100); POTASSIUM 4.3 mEq/L (3.5-5.2); SODIUM 147 mEq/L (134-144)
[2016-07-15 07:05] VITALS: RESP 20
--- NOTE | 2016-07-15 07:39 | SOAPPROG ---
CELINA Progress Note Assessment/Plan: Assessment: 1. Swallowing - ongoing trouble with hiccups - s/p EGD with dilation of stricture - await speech path/video swallow - multifactorial? GERD? hiccups? cognitive difficulty? - no evidence of esophagitis on EGD 2. PUD/DU - incidental finding - bx pending - h.pylori testing pending Plan: 1. BID PPI PO x 12 weeks, then QD thereafter 2. Await bx results (my office will communicate these to patient, results may take 7-10d) 3. Await video swallow and speech path input - will sign off, call with questions 07/15/16 07:36 Subjective: CC: hiccups very bothersome S: hiccups very bothersome poor sleep no fever no vomiting no chest pain Objective: Vital Signs Temp Pulse Resp BP Pulse Ox 36.9 C 69 20 136/74 H 93 07/15/16 07:04 07/15/16 07:04 07/15/16 07:04 07/15/16 07:04 07/15/16 07:04 Laboratory Results 07/15/16 05:08 07/15/16 05:08 07/14/16 07/15/16 07/16/16 05:59 05:59 05:59 Intake Total 1425 1525 Output Total 2350 700 Balance -925 -700 1525 Physical Exam - Physical Exam General Appearance: no apparent distress EENT: PERRL/EOMI Respiratory: lungs clear Cardiac/Chest: normal peripheral pulses Abdomen: normal bowel sounds Skin: normal color, warm/dry, No cyanosis Extremities: normal range of motion Neuro/Psych: no motor/sensory deficits, oriented x 3 ICD10 Worksheet Patient Problems: Problems Problem Status Diagnosed Aortic valve insufficiency Acute Cardiomyopathy Acute Chest pain Acute
[2016-07-15] MEDS: BACLOFEN 10 MG TAB PO PRN (08:25)
[2016-07-15] MEDS: DORZOLAMIDE 2% OPTH DROPS OP SCH (08:27)
[2016-07-15] MEDS: BRIMONIDINE/TIMOLOL 5 ML OPHT.BTL EACHEYE SCH (08:29)
[2016-07-15] MEDS: CETIRIZINE 10 MG TAB PO SCH (10:17)
[2016-07-15] MEDS: PANTOPRAZOLE SODIUM 40 MG TAB PO SCH (10:18)
[2016-07-15] MEDS: FOLIC ACID 1 MG TAB PO SCH (10:19)
[2016-07-15] MEDS: PSYLLIUM METAMUCIL 1 PKT PO SCH (10:19)
--- NOTE | 2016-07-15 10:43 | DX ---
Videofluoroscopy With Speech Therapy Clinical History: 76-year-old male with history of metastatic melanoma status post chemotherapy with some odynophagia and esophagitis, and a history of Parkinson's disease. Evaluate dysphagia. TECHNIQUE: This exam was performed in conjunction with the speech therapist, and the patient was imag ed in lateral projection while ingesting thin barium, applesauce coated with barium, cracker coated w ith barium, and a barium tablet with water. Fluoroscopy Time: 1.7 minutes (exposure dose of 3.30 mGy) COMPARISON STUDY: None. FINDINGS: There is appropriate oropharyngeal propulsion of the bolus into the hypopharynx with approp riate epiglottic inversion. There was no nasopharyngeal reflux or alexander aspiration. There is no crico pharyngeus spasm. There was a single transient episode of vestibular penetration which was relatively shallow, noted only with one of the trials of thin liquid. IMPRESSION: Very mild pharyngeal dysphagia with transient shallow vestibular penetration with thin li quid. There was no evidence of aspiration. Please also refer to the speech therapist's separate assessments and specific recommendations for fol low up.
[2016-07-15 11:35] VITALS: BP 113/60; PULSE 66; TEMP 98.2; O2SAT 92
--- NOTE | 2016-07-15 12:57 | PDIAF ---
- Diagnosis Diagnosis: corinne Code Status: Full Code - Medication Management Discharge Medications: Medications to Continue on Transfer Brimonidine/Timolol [Combigan (*)] 1 ml EACHEYE BID 11/20/14 [Last Taken 08:00] Cetirizine [ZyrTEC 10 mg (*)] 10 mg PO DAILY 11/20/14 [Last Taken 11/20/14] Donepezil HCl [Aricept 5 MG (*)] 5 mg PO HS 11/20/14 [Last Taken 11/19/14] Fluticasone Nasal [Flonase Nasal [place]] 2 sprays NASAL DAILY PRN 11/20/14 [Last Taken Unknown] Folic Acid [Folic Acid 1 MG (*)] 0.8 mg PO DAILY 11/20/14 [Last Taken 11/20/14] Psyllium Husk (with Sugar) [Metamucil Packet] 1 each PO DAILY@0730 11/20/14 [ Last Taken 11/20/14] Magnesium Oxide [Magnesium Oxide 400 mg (*)] 250 mg PO HS 02/12/16 [Last Taken Unknown] Carboxymethylcellulose Sodium [Thera Tears] 1 each OP DAILY PRN 07/09/16 [Last Taken Unknown] Carvedilol [Coreg (*)] 25 mg PO BIDMEAL 07/09/16 [Last Taken Unknown] Chemo 1 ea IV Q21D 07/09/16 [Last Taken Unknown] Dorzolamide 2% [Trusopt 2% (*)] 1 drops OP TID 07/09/16 [Last Taken Unknown] Latanoprost 0.005% [Xalatan 0.005% (*)] 1 drops EACHEYE HS 07/09/16 [Last Taken Unknown] Baclofen [Baclofen 10 mg (*)] 10 mg PO TID PRN #0 tab 07/14/16 [Last Taken Unknown] Pantoprazole Sodium [Protonix 40mg (*)] 40 mg PO BID #30 tab 07/14/16 [Last Taken Unknown] Discharge Medications: Refer to the Discharge Home Medication list for PRN reason. - Orders Services needed: Registered Nurse, Physical Therapy, Occupational Therapy ( Assistance with meals and hydration) Diet Recommendation: no restrictions on diet Diet Texture: Regular Texture Diet, Thin Liquids, Meds Whole w/Liquids - Labs/Radiology BMP Date: 07/17/16 (creatinine check) - Follow Up Care Current Providers and Referrals: Howard Summers [Medical Doctor] -
--- NOTE | 2016-07-15 13:40 | SOAPPROG ---
CELINA Progress Note Assessment/Plan: Assessment: - Metastatic melanoma (lung mets) s/p 4 cycles ipilimumab/nivolumab - non contrast chest CT shows improvement. This is a good sign at this early evaluation point - Acute renal failure due to dehydration - Cr is 1.4. This is very close to baseline for him (1.3). - Baseline dementia - I do not think he is able to live independently at this time without additional assistance. He will be discharge to [facility]. - Fever - has not recurred. - Sundowning - still an issue - Esophagitis - he is eating better. No significant pathology found other than a mild stricture. 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 - Pacemaker dependent cardiac arrhythmia Plan: - D/C to [facility] today - Follow up in our office next week. He can see one of our APPs. Please make an appointment for him before he leaves. - He will need a PET/CT in the next couple of weeks for restaging purposes - we will arrange this as an outpatient. Subjective: Afraid of nausea. Doesn't have any nausea at the moment. Objective: Vital Signs Temp Pulse Resp BP Pulse Ox 36.8 C 66 20 113/60 92 07/15/16 11:35 07/15/16 11:35 07/15/16 11:35 07/15/16 11:35 07/15/16 11:35 Laboratory Results 07/15/16 05:08 07/15/16 05:08 07/13/16 07/14/16 07/15/16 23:59 23:59 23:59 Intake Total 0064 708 5662 Output Total 2250 500 850 Balance -925 -400 675 Physical Exam - Physical Exam General Appearance: mild distress Skin: pallor Neuro/Psych: depressed affect ICD10 Worksheet Patient Problems: Problems Problem Status Diagnosed Aortic valve insufficiency Acute Cardiomyopathy Acute Chest pain Acute
--- NOTE | 2016-07-15 18:14 | GDS ---
[f rep st] DISCHARGE SUMMARY DISCHARGE DIAGNOSES: Include: 1. Acute kidney injury secondary to hypovolemia. 2. Peptic ulcer disease, new diagnosis, Helicobacter pylori pending. 3. Esophageal stricture, status post dilation. 4. Mild gastritis. 5. Odynophagia. 6. Hyperkalemia secondary to acute kidney injury. 7. Metastatic melanoma, receiving active chemotherapy. 8. Coronary artery disease. 9. Alcohol use. HISTORY OF PRESENT ILLNESS: A 76-year-old male with a history of metastatic melanoma, receiving outp atient chemotherapy, who presents on 07/09/2016 with weakness. For details of the patient's initial presentation, please see the history and physical dated 07/09/2016. CONSULTATIVE SERVICES: Include: 1. Hematology/Oncology. 2. Gastroenterology. PROCEDURES: 1. On 07/10/2016, patient had an ultrasound of the kidneys performed that showed no evidence of kevin l artery stenosis, no hydronephrosis. 2. On 07/13/2016, patient had a CT scan of the chest that showed overall significant response of pul monary nodules to outpatient chemotherapy. No infiltrates were appreciated. 3. On 07/14/2016, patient had an esophagogastroduodenoscopy that showed esophageal stenosis, status post now dilation, peptic ulcer disease/duodenal ulcer disease, mild gastritis. HOSPITAL COURSE BY ISSUE: 1. Acute kidney injury, presumably secondary to hypovolemia, as the patient was having marked diffic ulty and discomfort with oral intake. The patient presented with a creatinine of 3.7, which improved with fluid resuscitation to 1.4 on the day of discharge. The patient is tolerating adequate p.o., a nd will be encouraged in the [facility] facility to keep his fluid intake high. We are hopeful now, status post dilation, that he will have greater ease in both fluid and nutritional intake. 2. Odynophagia, presumed secondary to esophagitis in the early part of his stay, but after EGD, we h ave greater suspicion it may be related to his esophageal stenosis. Did have video swallow study per formed for better understanding of his mechanics, and that appeared to be normal. It was the recomme ndation of Gastroenterology to continue twice daily PPI treatment for 1 month, and [facility]. Biopsies are pending at the time of disposition, which Dr. Orr will follow in the outpatient setting. 3. Peptic ulcer disease/gastritis, suspect likely related to his alcohol use. Again, we are dischar ging on twice daily PPI and outpatient GI followup for biopsy results. 4. Metastatic melanoma. The patient is being followed very closely by his oncologic team. Chest im aging showed interval response to his outpatient chemotherapy. He will have PET scanning in the outp atient setting. 5. Acute metabolic acidosis secondary to acute kidney injury. The patient initially received fluid resuscitation containing bicarbonate. He was weaned off this, and has maintained a normal acid-base status for 48 hours without fluid or bicarbonate supplementation. 6. Hyperkalemia secondary to acute kidney injury. Patient did not have acute changes on his EKG, an d had resolution of his electrolyte abnormalities with fluid resuscitation alone. MEDICATIONS: At the time of disposition, please reference medication reconciliation printed on 07/15. FOLLOWUP APPOINTMENTS: Include with outpatient gastroenterology as well as outpatient hematology/onc ology. PENDING STUDIES: At the time of this dictation, include H pylori studies as well as biopsies from e EGD, which will be followed by Dr. Orr. I spent greater than 30 minutes in the planning and coordination of his discharge. /[id number]/MODL
== END 2016-07-15 14:20 | DRG 683 ==
LOC: F3E 17:07
PROVIDERS: ADMIT Internal Medicine; ATTEND Internal Medicine
PROC: 0DB98ZX Excision of Duodenum, Via Natural or Artificial Opening Endoscopic, Diagnostic (ICD-10-PCS; principal; 2016-07-14 16:23)
PROC: 0DB58ZX Excision of Esophagus, Via Natural or Artificial Opening Endoscopic, Diagnostic (ICD-10-PCS; principal; 2016-07-14 16:23)
PROC: 0D758ZZ Dilation of Esophagus, Via Natural or Artificial Opening Endoscopic (ICD-10-PCS; principal; 2016-07-14 16:23)
DX: N17.8 Other acute kidney failure (principal); E87.2 Acidosis; C43.9 Malignant melanoma of skin, unspecified; E86.1 Hypovolemia; E87.5 Hyperkalemia; G20 Parkinson's disease; K27.9 Peptic ulcer, site unspecified, unspecified as acute or chronic, without hemorrhage or perforation; K22.2 Esophageal obstruction; K29.70 Gastritis, unspecified, without bleeding; Z72.89 Other problems related to lifestyle; R13.19 Other dysphagia; Z95.0 Presence of cardiac pacemaker; Z95.5 Presence of coronary angioplasty implant and graft; Z85.46 Personal history of malignant neoplasm of prostate
CPT/HCPCS: 92611-GN; 97110-GP; 97116-GP; 97162-GP; 97166-GO; 97535-GO; G8978-GP-CJ; G8979-GP-CI; G8987-GO-CI; G8988-GO-CH; G8996-GN-CI; G8997-GN-CI; J2250; J2405; J3010

== ENCOUNTER 2018-04-08 11:43 | Inpatient (IN) | payer OTHER, BC ==
[2018-04-08] MEDS ORDERED: NS 1,000 ML IV ONE ×3 (12:03→13:59)
--- NOTE | 2018-04-08 12:09 | CPEKG ---
Test Reason : OPEN Blood Pressure : / mmHG Vent. Rate : 074 BPM Atrial Rate : 073 BPM P-R Int : 152 ms QRS Dur : 185 ms QT Int : 536 ms P-R-T Axes : 100 -88 093 degrees QTc Int : 595 ms A-V dual-paced rhythm with some inhibition Confirmed by Stefan Park ([id number]) on 04/08/2018 12:09:37 PM Referred By: Confirmed By:Stefan Park
--- NOTE | 2018-04-08 12:12 | EDPHY ---
H & P Stated Complaint: from [facility], family says having diff talking, [facility] having difficulty getting vs Time Seen by Provider: 04/08/18 11:57 HPI/ROS: CHIEF COMPLAINT: Confusion, difficulty with speech, dehydration and weakness HISTORY OF PRESENT ILLNESS: The patient is referred to the emergency department from the cancer center with increasing weakness, dehydration, confusion and difficulty with speech. 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 The patient is currently on Novalumab immunotherapy. The patient was seen in the oncology clinic and referred to the ED for further evaluation and likely admission to the hospital. The patient is unable to provide much history in the emergency department. He complains of global weakness. He denies any fever, cough, congestion or dysuria. The patient is accompanied by a friend who knows little about his past medical history but does report the patient's family has been concerned about his declining mentation over the past week. REVIEW OF SYSTEMS: A comprehensive 10 point review of systems is otherwise negative aside from elements mentioned in the history of present illness. Source: Patient Exam Limitations: No limitations - Medical/Surgical History Hx Asthma: No Hx Chronic Respiratory Disease: No Hx Diabetes: No Hx Cardiac Disease: Yes Hx Renal Disease: No Hx Cirrhosis: No Hx Alcoholism: No Hx HIV/AIDS: No Hx Splenectomy or Spleen Trauma: No Other PMH: appy, prostatectomy, cramps in calves, pacemaker, melanoma, diverticulitis, - Social History Smoking Status: Never smoked - Physical Exam Exam: General Appearance: Alert, no distress Eyes: Pupils equal and round no pallor or injection ENT, Mouth: Dry mucous membranes Respiratory: There are no retractions, lungs are clear to auscultation Cardiovascular: Regular rate and rhythm Gastrointestinal: Mild tenderness to palpation in the right lower quadrant, normal bowel sounds Neurological: Alert and oriented x2, no gross motor deficits appreciated Skin: Warm and dry, no rashes Musculoskeletal: Neck is supple nontender Extremities: symmetrical, full range of motion Constitutional: Initial Vital Signs Blood Pressure 68/48 L 04/08/18 11:54 O2 Delivery Mode Room Air Allergies/Adverse Reactions: No Known Allergies Allergy (Verified 04/08/18 11:57) Home Medications: Medication Instructions Recorded Brimonidine/Timolol [Combigan (*)] 1 ml EACHEYE BID 11/20/14 Cetirizine [ZyrTEC 10 mg (*)] 10 mg PO DAILY 11/20/14 Donepezil HCl [Aricept 5 MG (*)] 5 mg PO HS 11/20/14 Fluticasone Nasal [Flonase Nasal 2 sprays NASAL DAILY PRN 11/20/14 Angora] Folic Acid [Folic Acid 1 MG (*)] 0.8 mg PO DAILY 11/20/14 Psyllium Husk (with Sugar) 1 each PO DAILY@0730 11/20/14 [Metamucil Packet] Magnesium Oxide [Magnesium Oxide 250 mg PO HS 02/12/16 400 mg (*)] Carboxymethylcellulose Sodium 1 each OP DAILY PRN 07/09/16 [Thera Tears] Carvedilol [Coreg (*)] 25 mg PO BIDMEAL 07/09/16 Chemo 1 ea IV Q21D 07/09/16 Dorzolamide 2% [Trusopt 2% (*)] 1 drops OP TID 07/09/16 Latanoprost 0.005% [Xalatan 0.005% 1 drops EACHEYE HS 07/09/16 (*)] Baclofen [Baclofen 10 mg (*)] 10 mg PO TID PRN #0 tab 07/14/16 Pantoprazole Sodium [Protonix 40mg 40 mg PO BID #30 tab 07/14/16 (*)] Medical Decision Making - Diagnostics EKG Interpretation: EKG: Complete interpretation has been separately recorded in the [facility] archive. Summary impression: Av paced rhythm, rate 74 Imaging Results: Imaging Impressions Chest X-Ray 04/08/18 12:12 Impression: 1. No definite acute findings. 2. Grossly stable left basilar nodule with small pleural effusions with associated atelectasis. ED Course/Re-evaluation: I evaluated the patient. He had a low blood pressure noted in triage. It was 160/130 at the time of my recheck. The patient presents to the ED with global dehydration and reported worsening cognitive changes. The patient does appear quite dehydrated. He is afebrile. He has no acute complaints. The patient is noted to have acute renal failure with an elevated creatinine of 2.5. The patient cannot undergo a brain MRI secondary to his pacemaker. A noncontrast head CT scan was ordered to evaluate for possible metastatic disease. The patient's chest x-ray demonstrates no evidence of an obvious pneumonia or infiltrate. The patient does have an elevated venous lactic acid which I feel is most consistent with dehydration and hypoperfusion and not secondary to an infectious process. Consultation was made with the hospitalist service. After 2 L of normal saline and bladder scan was performed and his bladder continues to be empty. Additional 1 L of normal saline was ordered. The patient will be admitted to the hospitalist service by Dr. Gordon. The patient doesn't have SIRS criteria. Differential Diagnosis: Differential diagnosis considered includes dehydration, metabolic abnormality, worsening [employer] metastases - Data Points Laboratory Results: Laboratory Results 04/08/18 12:14 04/08/18 12:14 04/08/18 04/08/18 04/08/18 12:14 12:14 12:14 WBC 8.64 10^3/uL 10^3/uL (3.80-9.50) RBC 4.17 10^6/uL L 10^6/uL (4.40-6.38) Hgb 14.4 g/dL g/dL (13.7-17.5) Hct 43.4 % % (40.0-51.0) MCV 104.1 fL H fL (81.5-99.8) MCH 34.5 pg H pg (27.9-34.1) MCHC 33.2 g/dL g/dL (32.4-36.7) RDW 12.4 % % (11.5-15.2) Plt Count 260 10^3/uL 10^3/uL (150-400) MPV 9.5 fL fL (8.7-11.7) Neut % (Auto) 57.2 % % (39.3-74.2) Lymph % (Auto) 24.9 % % (15.0-45.0) [place] % (Auto) 14.5 % H % (4.5-13.0) Eos % (Auto) 1.0 % % (0.6-7.6) Baso % (Auto) 0.9 % % (0.3-1.7) Nucleat RBC Rel Count 0.0 % % (0.0-0.2) Absolute Neuts (auto) 4.94 10^3/uL 10^3/uL (1.70-6.50) Absolute Lymphs (auto) 2.15 10^3/uL 10^3/uL (1.00-3.00) Absolute Monos (auto) 1.25 10^3/uL H 10^3/uL (0.30-0.80) Absolute Eos (auto) 0.09 10^3/uL 10^3/uL (0.03-0.40) Absolute Basos (auto) 0.08 10^3/uL 10^3/uL (0.02-0.10) Absolute Nucleated RBC 0.00 10^3/uL 10^3/uL (0-0.01) Immature Gran % 1.5 % H % (0.0-1.1) Immature Gran # 0.13 10^3/uL H 10^3/uL (0.00-0.10) VBG Lactic Acid 3.0 mmol/L H mmol/L (0.7-2.1) Sodium 141 mEq/L mEq/L (135-145) Potassium 5.2 mEq/L H mEq/L (3.3-5.0) Chloride 106 mEq/L mEq/L (97-110) Carbon Dioxide 19 mEq/l L mEq/l (22-31) Anion Gap 16 mEq/L H mEq/L (6-14) BUN 47 mg/dL H mg/dL (7-23) Creatinine 2.5 mg/dL H mg/dL (0.7-1.3) Estimated GFR 25 Glucose 112 mg/dL H mg/dL (70-100) Calcium 8.9 mg/dL mg/dL (8.5-10.4) Medications Given: Discontinued Medications Sodium Chloride (Ns) 1,000 mls @ 0 mls/hr IV EDNOW ONE; Wide Open PRN Reason: Protocol Stop: 04/08/18 12:04 Last Admin: 04/08/18 12:12 Dose: 1,000 mls Sodium Chloride (Ns) 1,000 mls @ 0 mls/hr IV EDNOW ONE; Wide Open PRN Reason: Protocol Stop: 04/08/18 12:13 Last Admin: 04/08/18 12:45 Dose: 1,000 mls Departure - Departure Disposition: [facility] Inpatient Acute Clinical Impression: Dehydration, Metastatic melanoma, Renal failure Condition: Fair Referrals: Howard Summers [Primary Care Provider] - As per Instructions
[2018-04-08 12:36] LABS: PLATELET COUNT 260 10^3/uL (150-400)
--- NOTE | 2018-04-08 14:18 | PDGENHP ---
History and Physical History and Physical: CC: Weakness failure to thrive, on therapy for melanoma HISTORY: The patient was brought in by a friend who found him to be weak and not thriving. The patient upon arrival here could not really answer questions about history. At this point he is more conversant after IV fluids, however he really is unable to fill me in on any recent symptoms particularly anything that would have caused the remarkable hypotension he presented with. He does admit to having some diarrhea a couple months ago can't remember when his last bowel movement was. Denies any kind of pain fevers shortness of breath vomiting decrease in intake of food or fluids. He does admit he has been taking antibiotic will of wine daily. He does also admit that he has had nothing to eat yet today that he remembers ROS: A comprehensive 10 system review revealed no other significant findings PAST MEDICAL HISTORY: Metastatic melanoma status post previous chemotherapy on current immunotherapy Acute kidney injury due to dehydration Esophageal stricture status post dilation Peptic ulcer disease Coronary artery disease status post stents Pacemaker Alcohol abuse Parkinson's disease Prostate cancer Cognitive impairment with memory and language issues among other domains, diagnosed with mild cognitive impairment by neuropsych testing in 2014 but has progressed symptom faulkner since then Parkinson's disease Ongoing chronic alcohol abuse FAMILY MEDICAL HISTORY: Coronary disease in his mother SOCIAL HISTORY: 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 He has a list that does include among others Coreg and Lasix and he thinks he is taking those. The list also includes April lab for melanoma but this is from urine half ago. He cannot recall when he last saw Dr. Heath or what he is taking for melanoma if anything. 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 Not really sure why he is here. Obvious memory issues. 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, no focal weakness, currently no tremor Skin: warm, dry, good color, but with very poor turgor overall, and there is some mild macular rash on the chest and lower limbs consisting of mostly some small excoriated lesions that look like he may have been itching though there are no scratch kirk or infections HEENT: normal with no signs of injury Neck: no mass or jvd Resps: relaxed Lungs: clear breath sounds Heart: regular, 1/6 murmur systolic at the apex Abdomen: soft, nondistended, with some mild suprapubic tenderness and guarding but no rebound and no palpable mass or bladder distension there, +BS, no mass Upper Extremities: normal Lower Extremities: no edema, warm No Bleeding or bruising LABORATORY DATA: CBC remarkable for macrocytosis and mild monocytosis but normal red and white cell numbers and platelets Acute renal failure with creatinine 2.5 elevated BUN, nearest baseline we have his 9 months ago at 1.7 Mild metabolic acidosis with anion gap of 16, potassium 5.2 new Lactic acid level is 3 RADIOLOGY STUDIES: I reviewed chest x-ray image from the ER today which shows a left basilar lung nodule which is unchanged from prior x-rays. Pacemaker is present with 2 leads I also reviewed CT scan images of head which is noncontrast. There are no signs of bleeding mass or other acute abnormalities. Nothing ischemic 12 LEAD EKG: I reviewed 12 lead tracing from the ER today showing 2 lead pacing with no evidence of malfunction of the pacer ASSESSMENT: * acute hypotension; I presume this is caused by dehydration, and his diuretic may have contributed to that but there is likely to be some other factors such as GI losses or lack of intake; given his poor memory long-term as well as acutely worse now and his use of alcohol in the setting of a dementia wonder if he was just drinking too much in unable to get food and water in; currently no signs of bleeding * acute kidney injury, hemodynamic mechanism * ongoing alcohol abuse at moderately high level, suspect thiamine deficiency and low but existent level of risk for withdrawal * acute encephalopathy in the setting of chronic dementia and Parkinson's disease * strongly suspect market gait instability acutely on top of chronic abnormality but is baseline at this time is not really known * metastatic melanoma; for some reason the records from the Oncology Clinic did not show up in our [facility] system so I am unable to find out right at the moment whether he has been under active treatment at this time, will need to obtain records * history of coronary artery disease with stenting appear stable at this time * history of peptic ulcer disease and esophageal stricture requiring dilation, asymptomatic at this time per the patient's description but will need to follow this closely and make sure he does eat and drink well I reviewed all the above in detail with the patient At this point he does not intend to quit drinking and so give him some low level alcohol here following closely for any signs of withdrawal or for its effects on gait, food and fluid intake, etc I did review core status with the patient and he at this point seems to understand the question is clear he wants full cor orders PLANS: * Inpatient admission as this will clearly take more than 48 hr to get him to a point of stability for discharge * Continue IV hydration * Follow renal function closely * Follow fluid and food intake closely * Awaiting pharmacy reconciliation of his home medicines * Will request records from the Oncology Clinic so we have a better idea what's happening there * Thiamin replacement * 1 glass of wine twice daily and follow closely how he is doing with any potential withdrawal or toxicity affects * Fall risk precautions * PT and OT * DVT prophylaxis * Social work consult; unclear whether he will be able to safely return to home , but certainly if and when he does return home some type of assistance or supervision would be strongly recommended; will need to see what his mentation in gait or like at the end of inpatient therapy I have reviewed the patient's case in detail with Dr. Layo Park I have reviewed the patient's past medical records as part of this assessment, including previous hospital admission records as well as outpatient clinic records
[2018-04-08 14:30] LABS: INR 1.29 (0.83-1.16); PROTIME(PATIENT) 16.3 SEC (12.0-15.0)
[2018-04-08] MEDS ORDERED: ZOLPIDEM TARTRATE 5 MG TAB PO PRN (15:15)
[2018-04-08] MEDS ORDERED: ACETAMINOPHEN 325 MG TAB PO PRN (15:15)
[2018-04-08] MEDS ORDERED: ONDANSETRON 4 MG/2 ML VIAL IVP PRN (15:15)
--- NOTE | 2018-04-08 17:25 | PDMN ---
Medical Necessity Medical necessity: Pt meets IP criteria per MD & MCG M-[id number]; est los >2 mn for eval/tx of dehydration w/hypotension (BP 68/48), acute kidney injury, encephalopathy & weakness; admit for further monitoring/stability, IVFs, follow- up labs, therapies & SW consult for dc planning; comorbid advanced age, metastatic melanoma on immunotherapy, alcohol abuse, parkinsons, cognitive impairment, CAD, esophageal stricture s/p dilation; per H&P & order 04/08/18
[2018-04-08] MEDS: NS 1,000 ML IV SCH (17:57)
[2018-04-08] MEDS: MELATONIN 3 MG TAB PO SCH (20:46)
[2018-04-08] MEDS: HEPARIN 5,000 UNIT/0.5 ML INJ SC SCH (20:46)
[2018-04-08] MEDS ORDERED: CARBOXYMETHYLCELLULOSE 0.5% 0.4 ML DROPERETTE EACHEYE PRN (21:22)
[2018-04-08] MEDS ORDERED: FLUTICASONE NASAL 120 SPRAYS/16 GM MDI NS PRN (21:22)
[2018-04-08] MEDS: RED WINE 120 ML BOTTLE PO SCH (22:11)
[2018-04-09] MEDS: HEPARIN 5,000 UNIT/0.5 ML INJ SC SCH ×3 (04:36→20:48)
[2018-04-09] MEDS: NS 1,000 ML IV SCH ×2 (04:36→15:51)
[2018-04-09] MEDS: THIAMINE HCL 100 MG TAB PO SCH ×2 (04:36→10:53)
[2018-04-09] MEDS: PSYLLIUM METAMUCIL 1 PKT PO SCH (08:51)
--- NOTE | 2018-04-09 10:12 | ASMTCMCOM ---
CM Note CM Note Notes: Pt is a 78 y/o man admitted for weakness and failure to thrive. Pt with a hx of metastatic melanoma status post previous chemo on current immunotherapy. Pt has a hx of etoh abuse. Please see additional medcal history from H&P. Therapies have been ordered and awaiting recommendations. Needs are TBD at this time. CM to follow. Plan: TBD Date Signed: 04/09/2018 10:11 AM Electronically Signed By:CHETNA Lozoya
[2018-04-09] MEDS: predniSONE 10 MG TAB PO SCH (11:03)
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
--- NOTE | 2018-04-09 13:43 | HOSPPROG ---
Hospitalist Progress Note Assessment/Plan: * acute hypotension * Due to dehydration, can't imagine he was taking care of himself well * acute kidney injury, hemodynamic mechanism * Continue IV fluids * alcohol abuse * Is being given wine. Will watch for any further withdrawal * history of hypertension * Holding carvedilol and Lasix * history of chemotherapy-induced colitis * On prednisone * acute encephalopathy in the setting of chronic dementia and Parkinson's disease * Not sure if this is new baseline. Will see how he does with fluid. Could consider MRI brain I suppose to look for metastatic disease. * Will be getting cortisol levels an ACTH the morning due to possible side effect from chemotherapy per Oncology * malignant melanoma * Getting chemotherapy * history of coronary artery disease with stenting appear stable at this time * history of peptic ulcer disease and esophageal stricture requiring dilation * disposition * Will probably need placement Subjective: No new complaints or events but is confused Objective: Vital Signs Temp Pulse Resp BP Pulse Ox 36.9 C 64 14 100/52 L 90 L 04/09/18 11:57 04/09/18 11:57 04/09/18 11:57 04/09/18 11:57 04/09/18 11:57 Laboratory Results 04/09/18 04:28 04/09/18 04:28 04/08/18 04/09/18 04/10/18 05:59 05:59 05:59 Intake Total 3750 Output Total 460 160 Balance 3290 -160 PT 16.3 SEC (12.0-15.0) H 04/08/18 12:14 INR 1.29 (0.83-1.16) H 04/08/18 12:14 - Physical Exam Constitutional: no apparent distress, appears nourished, not in pain Eyes: anicteric sclera, EOMI Ears, Nose, Mouth, Throat: moist mucous membranes, hearing normal Cardiovascular: regular rate and rhythym, no murmur, rub, or gallop Respiratory: no respiratory distress Gastrointestinal: normoactive bowel sounds, soft, non-tender abdomen, no palpable masses Skin: warm Neurologic: No AAOx3 (Says he is in [place]) Psychiatric: encephalopathic ICD10 Worksheet Patient Problems: Problems Problem Status Onset Dehydration Acute Metastatic melanoma Acute Renal failure Acute Aortic valve insufficiency Acute Cardiomyopathy Acute Chest pain Acute
[2018-04-09] MEDS: RED WINE 120 ML BOTTLE PO SCH ×2 (13:59→20:37)
[2018-04-09] MEDS: DONEPEZIL HCL 5 MG TAB PO SCH (20:29)
[2018-04-09] MEDS: MELATONIN 3 MG TAB PO SCH (20:29)
[2018-04-10 04:47] LABS: PLATELET COUNT 198 10^3/uL (150-400)
[2018-04-10] MEDS: NS 1,000 ML IV SCH ×2 (04:58→14:41)
[2018-04-10] MEDS: HEPARIN 5,000 UNIT/0.5 ML INJ SC SCH ×3 (04:58→20:44)
[2018-04-10] MEDS: PSYLLIUM METAMUCIL 1 PKT PO SCH (08:05)
--- NOTE | 2018-04-10 10:21 | HOSPPROG ---
Hospitalist Progress Note Objective: Vital Signs Temp Pulse Resp BP Pulse Ox 36.6 C 76 18 114/61 96 04/10/18 08:10 04/10/18 08:10 04/10/18 08:10 04/10/18 08:10 04/10/18 08:10 Laboratory Results 04/10/18 03:58 04/10/18 03:58 04/09/18 04/10/18 04/11/18 06:59 06:59 06:59 Intake Total 3750 2378 Output Total 460 770 Balance 3290 1608 PT 16.3 SEC (12.0-15.0) H 04/08/18 12:14 INR 1.29 (0.83-1.16) H 04/08/18 12:14 ICD10 Worksheet Patient Problems: Problems Problem Status Onset Dehydration Acute Metastatic melanoma Acute Renal failure Acute Aortic valve insufficiency Acute Cardiomyopathy Acute Chest pain Acute
[2018-04-10] MEDS: THIAMINE HCL 100 MG TAB PO SCH (10:55)
[2018-04-10] MEDS: predniSONE 10 MG TAB PO SCH (10:55)
--- NOTE | 2018-04-10 12:24 | HOSPPROG ---
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 He may also have some pituitary axis dysfunction however caused by going off his chronic prednisone and by his immunotherapy for tumor. Given that he is on prednisone now this may be somewhat hard to sort out. I will see if the labs able to do ACTH and cortisol levels from his ER blood sample. Either a low ACTH or cortisol level at that point would be a very instructive. He certainly needs to be on his prednisone 10 mg daily at a minimum but may need more than that if he has developed pituitary dysfunction, and he may need stress dose steroids for any illness. In addition we should look for other pituitary levels which may be important both diagnostically and treatment faulkner. In specific I will order free T3 and free T4. The TSH is normal but if the T3 and T4 low it could indicate a inadequate response of his pituitary in the setting of hypothyroidism which could contribute to his presenting encephalopathy as well It sounds like he is still somewhat unsteady on his feet although he does not agree with this. Will continue physical occupational therapy for now PLANS: * For the moment continu his current prednisone * Will try to get ACTH and cortisol levels from his ER blood sample * Will check free T3 free T4 and prolactin levels * Continue hydration at this time * Continue PT and OT and fall risk precautions * DVT prophylaxis * Continue low level alcohol intake here with ongoing alcohol counseling * Continue thiamin replacement * Continue discharge planning Seen by me today on hospitals rounds and multidisciplinary Cancer Care rounds I reviewed with Dr. Matt Abel today SUBJECTIVE: Patient says he feels well though fatigued Denies any pain or discomfort, says he has been eating well however the nurse notes he eats only 2 meals a day and only eats about half the meal The the son is here at the bedside today and tells me that the patient has a long history of chronic colitis with chronic diarrhea that is dependent on prednisone for managing the diarrhea. He states that in the past whenever the patient has gone off is prednisone he has significant diarrhea often leading to dehydration requiring ER or hospital treatment. As mentioned in my initial H&P the patient had told me he had stopped taking his prednisone and he thought he had been having some diarrhea, though at that time he was confused enough that the symptoms were, and now remain, difficult to clarify. 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 Cortisol all is 1.3 with ACTH pending TSH done yesterday was normal Objective: Vital Signs Temp Pulse Resp BP Pulse Ox 37 C 67 16 113/55 L 91 L 04/10/18 11:34 04/10/18 11:34 04/10/18 11:34 04/10/18 11:34 04/10/18 11:34 Laboratory Results 04/10/18 03:58 04/10/18 03:58 04/09/18 04/10/18 04/11/18 06:59 06:59 06:59 Intake Total 3750 2378 Output Total 460 770 Balance 3290 1608 PT 16.3 SEC (12.0-15.0) H 04/08/18 12:14 INR 1.29 (0.83-1.16) H 04/08/18 12:14 - Time Spent With Patient Time Spent with Patient: greater than 35 minutes Time Spent with Patient: Greater than 35 minutes spent on this patients care, greater than 50% of time spent counseling, educating, and coordinating care regarding the above mentioned plan. ICD10 Worksheet Patient Problems: Problems Problem Status Onset Dehydration Acute Metastatic melanoma Acute Renal failure Acute Aortic valve insufficiency Acute Cardiomyopathy Acute Chest pain Acute
[2018-04-10] MEDS: RED WINE 120 ML BOTTLE PO SCH ×2 (13:22→19:34)
--- NOTE | 2018-04-10 13:57 | ASMTCMCOM ---
CM Note CM Note Notes: CM met with pt and son Stone. Pt lives alone in an apt and possibly drinks a bottle of wine a day. Per Stone, pt does not like to drink water and subsequently gets dehydrated. Pt states he stopped taking his prednisone b/c his rx ran out. Stopping the prednisone that helps with this colitis, caused diarrhea which also was a factor in his dehydration. Pt has poor insight to medication management and alcohol use. Per son, pt has some cognitive decline as well, he had a cog eval last year that showed memory issues. PT recommends home care, OT eval still pending. Pt should also get RN and SW to address medication management and drinking. Gave pt homecare list, he has no preference and is fine with [facility]. Pt's son will be staying with him for a few days post hospital stay. Referral sent to [facility] DC Plan: Homecare Date Signed: 04/10/2018 01:57 PM Electronically Signed By:Aleisha Nettles RN
--- NOTE | 2018-04-10 14:54 | SOAPPROG ---
SOAP Progress Note Assessment/Plan: Assesment and Plan: Patient is a 78 year old male with metastatic melanoma admitted for [place] and hypotension after being found by friends unconscious at home subsequently found to have low AM cortisol. 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 AM cortisol 1.2. Agree with ACTH stim test to confirm diagnosis, followed by empiric steroids until can be seen by endocrinology as outpatient. #Acute kidney injury Likely due to hypovolemia, creatinine at baseline. Baseline ~1, admission Cr > 2.0. -continue current management #Alcohol Abuse Would monitor for withdrawal while in hospital. #Macrocytosis Related to EtOH abuse, TSH normal Matt Abel 04/10/18 15:00 Subjective: Patient still with fatigue this AM, would like to sleep, denies orthostasis Objective: Vital Signs Temp Pulse Resp BP Pulse Ox 37 C 67 16 113/55 L 91 L 04/10/18 11:34 04/10/18 11:34 04/10/18 11:34 04/10/18 11:34 04/10/18 11:34 Laboratory Results 04/10/18 03:58 04/10/18 03:58 04/09/18 04/10/18 04/11/18 05:59 05:59 05:59 Intake Total 3750 2378 Output Total 460 770 Balance 3290 1608 PT 16.3 SEC (12.0-15.0) H 04/08/18 12:14 INR 1.29 (0.83-1.16) H 04/08/18 12:14 Physical examination: vital signs reviewed General: non toxic appearing male HEENT: PERRL no icterus or pallor, oral mucosa without lesions Neck: supple, no adenopathy CV: RRR with III/ systolic murmur best heard at RUSB with radiation to carotids Lungs: CTA and percussion in bilateral posterior lungs Extremities: warm and well perfused, no edema. Neurologic: alert and oriented x 4 ICD10 Worksheet Patient Problems: Problems Problem Status Onset Dehydration Acute Metastatic melanoma Acute Renal failure Acute Aortic valve insufficiency Acute Cardiomyopathy Acute Chest pain Acute
[2018-04-10] MEDS: MELATONIN 3 MG TAB PO SCH (20:44)
[2018-04-10] MEDS: DONEPEZIL HCL 5 MG TAB PO SCH (20:44)
[2018-04-11] MEDS: NS 1,000 ML IV SCH (01:49)
[2018-04-11] MEDS: HEPARIN 5,000 UNIT/0.5 ML INJ SC SCH (06:32)
--- NOTE | 2018-04-11 10:23 | HOSPPROG ---
Hospitalist Progress Note Assessment/Plan: DIAGNOSES: * acute encephalopathy improving with IV hydration and nutrition * gait instability, multifactorial * acute dehydration, possibly due to diarrhea and poor intake at home along with multiple other factors * acute renal failure, resolving with hydration * new onset of anemia here, in setting of chronic macrocytosis without anemia normal B12 levels * As he is having loose stools now and the air in the room smells like possible melenic stool, would be concerned about possible upper GI bleed which would not be surprising given his alcohol * question of adrenal pituitary dysfunction related to his immunotherapy for melanoma, or to chronic but intermittent prednisone use * His hypoglycemia is curious and I am not sure of the cause of that * The significance of the low cortisol on 04/09 is uncertain as he was rehydrated by then and was started on prednisone before that date * No evidence of thyroid or prolactin abnormalities * chronic colitis treated with prednisone - per the son the patient gets diarrhea if he goes off of his prednisone, and it is suspected that This may have been occurring at home and contributing to his presentation with dehydration PLANS: * NPO at this time, heparin stops, Protonix started * Recheck hemoglobin now and check stools for evidence of blood; if any evidence at all of GI bleeding he will need endoscopies * The laboratory will do a cortisol level from his ER blood sample this morning , prednisone on hold for the moment case may need to do a stim test tomorrow * Continue hydration at this time * Continue PT and OT and fall risk precautions * DVT prophylaxis on hold due to possible bleeding * Continue low level alcohol intake here with ongoing alcohol counseling * Continue thiamin replacement * Continue discharge planning Seen by me today on hospitals rounds and multidisciplinary Cancer Care rounds I reviewed with SUBJECTIVE: Patient states that he overall feels well. Did start having watery stools overnight Denies abdominal pain nausea vomiting No other new acute symptoms Review of physical occupational therapy notes from yesterday reveals that the physical therapist felt the patient would be able to do well with home care but should have physical therapy there, though the occupational therapist was recommending jail facility care after this hospital admission. Will need to assess all this carefully. 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, my review: Exam: Notably there is an odor in the room suggestive of possible melanic stool (no stool has been collected are held so nothing to assess at the moment) alert oriented but with memory deficit skin warm dry color ok resps not labored lungs clear BSs heart regular abd soft nondistended, some mild left lower quadrant tenderness which the patient says is chronic but I do not recall from yesterday, bowel sounds present limbs warm, no edema iv site ok Lab data: As of yesterday Hemoglobin has dropped to 10 from 14 and on reviewing labs over the last 6 months his hemoglobin has been in the 13 14 range quite steadily, normocytic MCV on chemistry glucoses have been running low in the mornings and this morning was 55 Creatinine now down to 1 Free T3 and free T4 are normal and prolactin is normal On review with his situation or overall he did have the low a.m. Serum cortisol on 04/09 but he was getting prednisone at that time and was well rehydrated at that time so it is unclear with the meaning of that value is Objective: Vital Signs Temp Pulse Resp BP Pulse Ox 36.9 C 72 16 119/73 93 04/11/18 09:42 04/11/18 09:42 04/11/18 09:42 04/11/18 09:42 04/11/18 09:42 Laboratory Results 04/10/18 03:58 04/11/18 04:30 04/10/18 04/11/18 04/12/18 06:59 06:59 06:59 Intake Total 2378 2764 Output Total 770 1 Balance 1608 2763 PT 16.3 SEC (12.0-15.0) H 04/08/18 12:14 INR 1.29 (0.83-1.16) H 04/08/18 12:14 ICD10 Worksheet Patient Problems: Problems Problem Status Onset Dehydration Acute Metastatic melanoma Acute Renal failure Acute Aortic valve insufficiency Acute Cardiomyopathy Acute Chest pain Acute
[2018-04-11] MEDS: PANTOPRAZOLE SODIUM 40 MG VIAL IVP SCH ×2 (10:47→22:36)
[2018-04-11] MEDS: THIAMINE HCL 100 MG TAB PO SCH (10:47)
[2018-04-11] MEDS: PSYLLIUM METAMUCIL 1 PKT PO SCH (10:53)
--- NOTE | 2018-04-11 12:20 | ASMTCMCOM ---
CM Note CM Note Notes: Pt's son has moved to [place] and plans to live with his father until his father moves to [place] to live with his daughter and son-in-law; this will occur in approximately 3 months. [facility] will be providing in-home care. Son has been given the [employer] with its list of private unskilled services. CM to follow. D/C Plan: Home with son, [facility] RN/PT/OT/SW Date Signed: 04/11/2018 12:19 PM Electronically Signed By:Soledad Arceo
--- NOTE | 2018-04-11 12:48 | SOAPPROG ---
SOAP Progress Note Assessment/Plan: Assessment: This is a very pleasant 78-year-old male with history of metastatic melanoma who was admitted for hypotension and hypoglycemia. 1. Adrenal insufficiency: From what his son is staying, it felt like he was on long-term prednisone at 10 mg and was off for few days. His a.m. Cortisol is low. Serum ACTH is currently pending. His TSH and prolactin are normal. I suspect that some of this is related to long-term prednisone use versus immune related adrenal insufficiency. We also discussed the use of hydrocortisone versus prednisone for adrenal insufficiency. I think it would be reasonable for him to follow up with Endocrinology as an outpatient. We will resume his prednisone today. 2. Hypoglycemia: Likely related to 1. 3. Alcohol abuse: Is receiving wine as an inpatient. All questions were answered. He voices understanding of the plan. 04/11/18 12:48 Subjective: No acute events overnight. No chest pain or shortness of breath. He did have a few loose stools. Objective: Vital Signs Temp Pulse Resp BP Pulse Ox 36.8 C 65 16 119/54 L 96 04/11/18 11:38 04/11/18 11:38 04/11/18 11:38 04/11/18 11:38 04/11/18 11:38 Laboratory Results 04/11/18 Unknown 04/11/18 04:30 04/10/18 04/11/18 04/12/18 05:59 05:59 05:59 Intake Total 2378 2764 Output Total 770 1 Balance 1608 2763 PT 16.3 SEC (12.0-15.0) H 04/08/18 12:14 INR 1.29 (0.83-1.16) H 04/08/18 12:14 General: Pleasant, conversant no acute distress HEENT: Oropharynx is clear extraocular movements are intact Cardiovascular: Regular rate and rhythm systolic murmur appreciated throughout Pulmonary: Clear to auscultation bilaterally Extremities: No cyanosis clubbing or edema Neuro: Alert and oriented, moving all ext ICD10 Worksheet Patient Problems: Problems Problem Status Onset Dehydration Acute Metastatic melanoma Acute Renal failure Acute Aortic valve insufficiency Acute Cardiomyopathy Acute Chest pain Acute
[2018-04-11] MEDS ORDERED: predniSONE 10 MG TAB PO ONE (12:53)
[2018-04-11] MEDS: RED WINE 120 ML BOTTLE PO SCH ×2 (13:11→20:42)
[2018-04-11] MEDS: DONEPEZIL HCL 5 MG TAB PO SCH (22:36)
[2018-04-11] MEDS: MELATONIN 3 MG TAB PO SCH (22:36)
[2018-04-12 08:53] VITALS: BP 130/76
[2018-04-12] MEDS: THIAMINE HCL 100 MG TAB PO SCH (08:54)
[2018-04-12] MEDS: PSYLLIUM METAMUCIL 1 PKT PO SCH (08:54)
[2018-04-12] MEDS: PANTOPRAZOLE SODIUM 40 MG VIAL IVP SCH (08:55)
--- NOTE | 2018-04-12 16:11 | PDIAF ---
- Diagnosis Diagnosis: Dehydration with hypotension and renal failure, chronic colitis, melanoma, Code Status: Full Code - Medication Management Discharge Medications: Medications to Continue on Transfer Psyllium Husk (with Sugar) [Metamucil Packet] 1 each PO DAILY@0730 11/20/14 [ Last Taken 04/08/18] Carboxymethylcellulose 0.5% [Refresh Plus Drops 0.5%] 1 drops EACHEYE PRN PRN [Last Taken Unknown] Carvedilol [Coreg (*)] 25 mg PO BIDMEAL 04/08/18 [Last Taken 04/08/18] Donepezil HCl [Aricept 5 MG (*)] 5 mg PO HS 04/08/18 [Last Taken 04/07/18] Fluticasone Nasal [Flonase Nasal [place]] 1 sprays NASAL DAILY PRN 04/08/18 [Last Taken Unknown] Furosemide [Lasix 40 MG (*)] 40 mg PO DAILY 04/08/18 [Last Taken 04/08/18] Herbals/Supplements -Info Only 1 ea PO DAILY 04/08/18 [Last Taken 04/08/18] Nivolumab [Opdivo] 240 mg IV Q14D 04/08/18 [Last Taken 04/01/18] predniSONE 10 mg PO DAILY #0 04/12/18 [Last Taken 04/08/18] Discharge Medications: Refer to the Discharge Home Medication list for PRN reason. - Orders Services needed: Home Care, Registered Nurse, Certified Literacy Coordinator, Master Horse Rancher, Physical Therapy Home Care Face to Face: I certify that this patient was under my care and that I had the required [id number] encounter meeting the encounter requirements on the discharge day. My findings support the fact that the patient is homebound as defined in Home Care Face to Face Continued: CMS Chapter 7 Medicare Benefits Manual 30.1.1 , The condition of the patient is such that there exists a normal inability to leave home and consequently, leaving home would require a considerable and taxing effort. Diet Recommendation: sodium restricted Diet Texture: Regular Texture Diet Additional Instructions: Measure blood pressure 3 times a week watching for any low blood pressures, and notify Dr. Carrillo of Cardiology or see her in clinic if low blood pressures are occurring. By low blood pressure we mean any lightheadedness caused by lower blood pressures, OR a blood pressure lower than 95/55. Keep well hydrated Weigh yourself 3-4 times per week and watch for sustained decreases in weight of more than 3 lb or so Decrease in alcohol intake is strongly recommended Follow up with Dr. Heath as currently scheduled or sooner if needed for any particular problems If there are any difficulties with lightheadedness, wooziness, or low blood pressures, follow up with Dr. Friend is a Cardiology Clinic to review medications and treatment Do not stop taking prednisone without consulting with Dr. Heath 1st - Follow Up Care Current Providers and Referrals: Howard Summers [Primary Care Provider] - As per Instructions
--- NOTE | 2018-04-12 16:22 | ASMTLACE ---
FOSTERE Length of stay for Answers: 4-6 days current admission Acuity / Level of Answers: Yes Care: Did the patient have an inpatient admission? Comorbidities - select Answers: Coronary Artery Disease all that apply Diabetes (uncontrolled or controlled) Peptic ulcer disease Other Notes: Parkinson's disease, prostate cancer, metastatic melanoma, acute kidney injury due to dehydration, esophageal stricture status, # of Emergency department Answers: 0 visits in the last 6 months Social determinants Answers: History of substance abuse (ETOH, street drugs, prescription drugs, etc.) Score: 16 Date Signed: 04/12/2018 04:22 PM Electronically Signed By:Jen Dalton RN
--- NOTE | 2018-04-12 16:26 | ASMTCMCOM ---
CM Note CM Note Notes: Patient medically cleared for dc to home with son and C. [facility] aware of discharge. Tansfer of care summary completed. CM available should other needs arise. Plan: DC to home with his son and [facility]. Date Signed: 04/12/2018 04:26 PM Electronically Signed By:Jen Dalton RN
[2018-04-12] MEDS: RED WINE 120 ML BOTTLE PO SCH (19:36)
--- NOTE | 2018-04-27 14:36 | GDS ---
DIAGNOSES: 1. Acute encephalopathy. 2. Acute dehydration. 3. Chronic medication-induced colitis and diarrhea caused by medications for his melanoma. 4. Acute renal failure. 5. Chronic gait instability. 6. Suspected chronic dementia. CONSULTATIONS: Matt Abel MD. PROCEDURES: CT scan of head which showed no acute abnormalities. HOSPITAL COURSE: The patient is a 78-year-old man on chronic therapy for melanoma. He lives alone a nd does have some significant memory issues. He has people who check in on him but has had issues wi th recurrent episodes of dehydration. At this time, the patient comes in significantly dehydrated wi th hypotension, tachycardia, and acute renal failure. There was no evidence of infection or bleeding . He was hydrated with significant improvement. There was question about whether he may have had so me adrenal or pituitary or other endocrine insufficiency related to his melanoma biologic medications , but testing for these abnormalities did not reveal any acute endocrine dysfunction. The patient di d have some gait instability, but this gradually improved back to the point where he was safe to be a mbulating at home. Because of the patient's memory issues and his repeated episodes of dehydration, which appeared to be related to his stopping prednisone to treat his colitis, it was felt he needed more significant supe rvision at home. Fortunately, the son of the patient arrived in [place] from [place] during the [facility]'s hospital stay. The son is not currently employed and was able to stay here and live with the raine aguero at his home in [place]. The plan was then to have the patient eventually move to [place] whe re he could live with other family members. Palliative care consultations were done in the hospital, and there was consideration for possible change to a palliative care scenario for the patient in the future, but this will be decided with further conversations at home. The patient was discharged in stable condition. MEDICATION CHANGES: The patient was restarted on his usual 10 mg per day of prednisone, which he had previously stopped at home. There were no other medication changes at this time. FOLLOWUP: With Dr. Pedro Pablo Heath the following week in clinic. /[id number]
== END 2018-04-12 18:05 | disposition home health service (06) | DRG 683 ==
LOC: F1N 15:10
PROVIDERS: ADMIT Internal Medicine; ATTEND Internal Medicine
DX: N17.9 Acute kidney failure, unspecified (principal); E86.0 Dehydration; G93.40 Encephalopathy, unspecified; C43.9 Malignant melanoma of skin, unspecified; F10.10 Alcohol abuse, uncomplicated; K52.1 Toxic gastroenteritis and colitis; R26.89 Other abnormalities of gait and mobility; G31.83 Neurocognitive disorder with Lewy bodies; F02.80 Dementia in other diseases classified elsewhere, unspecified severity, without behavioral disturbance, psychotic disturbance, mood disturbance, and anxiety; I25.10 Atherosclerotic heart disease of native coronary artery without angina pectoris; I10 Essential (primary) hypertension; Z87.11 Personal history of peptic ulcer disease; Z85.46 Personal history of malignant neoplasm of prostate; Z95.5 Presence of coronary angioplasty implant and graft; Z95.0 Presence of cardiac pacemaker
CPT/HCPCS: 82024-90; 82530-90; 82607-90; 83789-90; 84481-90; 97116-GP; 97161-GP; 97166-GO; 97535-GO; G8978-GP-CJ; G8979-GP-CI; G8980-GP-CI; G8987-GO-CI; G8988-GO-CI; J1644; J7512

== ENCOUNTER 2018-05-10 10:31 | Emergency (ER) | payer OTHER, BC ==
--- NOTE | 2018-05-10 10:57 | EDPHY ---
H & P Stated Complaint: cancer pt with increased weakness FTT not drinking fluids confusion Time Seen by Provider: 05/10/18 10:49 HPI/ROS: CHIEF COMPLAINT: Confusion, increasing weakness, history of metastatic melanoma HISTORY OF PRESENT ILLNESS: The patient is brought into the ED by his caregiver with confusion, hallucinations and weakness consistent with his prior episodes of dehydration. The patient denies any history of fall or trauma. There has been no history of fever, cough or congestion. The patient has had a mild amount of nonbloody diarrhea. The patient has been hallucinating and disoriented today. He was acting appropriately yesterday. The patient has been taking his regular medications appropriately. REVIEW OF SYSTEMS: A comprehensive 10 point review of systems is otherwise negative aside from elements mentioned in the history of present illness. Source: Patient - Personal History Current Tetanus Diphtheria and Acellular Pertussis (TDAP): No - Medical/Surgical History Hx Asthma: No Hx Chronic Respiratory Disease: No Hx Diabetes: No Hx Cardiac Disease: Yes Hx Renal Disease: No Hx Cirrhosis: No Hx Alcoholism: Yes Hx HIV/AIDS: No Hx Splenectomy or Spleen Trauma: No Other PMH: appy, prostatectomy, cramps in calves, pacemaker, melanoma, diverticulitis, kidney failure r/t dehydration - Social History Smoking Status: Never smoked - Physical Exam Exam: General Appearance: Alert, no distress Eyes: Pupils equal and round no pallor or injection ENT, Mouth: Mucous membranes moist Respiratory: There are no retractions, lungs are clear to auscultation Cardiovascular: Regular rate and rhythm Gastrointestinal: Abdomen is soft and nontender, no masses, bowel sounds normal Neurological: A&O, normal motor function, normal sensory exam, normal cranial nerves Skin: Warm and dry, no rashes Musculoskeletal: Neck is supple nontender Extremities: symmetrical, full range of motion Constitutional: Initial Vital Signs Temperature (C) 36.3 C 05/10/18 10:40 Heart Rate 72 05/10/18 10:40 Respiratory Rate 18 05/10/18 10:40 Blood Pressure 118/72 05/10/18 10:40 O2 Sat (%) 92 05/10/18 10:40 O2 Delivery Mode Room Air Allergies/Adverse Reactions: No Known Allergies Allergy (Verified 05/10/18 10:32) Home Medications: Medication Instructions Recorded Psyllium Husk (with Sugar) 1 each PO DAILY@0730 11/20/14 [Metamucil Packet] Carboxymethylcellulose 0.5% 1 drops EACHEYE PRN PRN 04/08/18 [Refresh Plus Drops 0.5%] Carvedilol [Coreg (*)] 25 mg PO BIDMEAL 04/08/18 Donepezil HCl [Aricept 5 MG (*)] 5 mg PO HS 04/08/18 Fluticasone Nasal [Flonase Nasal 1 sprays NASAL DAILY PRN 04/08/18 [place]] Furosemide [Lasix 40 MG (*)] 40 mg PO DAILY 04/08/18 Herbals/Supplements -Info Only 1 ea PO DAILY 04/08/18 predniSONE 10 mg PO DAILY #0 04/12/18 Medical Decision Making ED Course/Re-evaluation: I reviewed the patient's past medical records. He has been admitted for confusion from presumed dehydration in the past. He has had significant dehydration resulting in renal failure in the past. The patient is here with his usual caregiver noted acute mental status changes over the past day. There has been no history of a fall or trauma. The patient himself has no acute complaints. The patient did receive a L of fluid in the emergency department. Laboratory testing demonstrates no evidence of significant leukocytosis, dehydration or metabolic derangement. Urinalysis demonstrates no evidence of an infection. I re-evaluated the patient at 1:30 p.m.. He is feeling much better. He has had no recurrent confusion or hallucinations. The patient would like to be discharged home. His caregiver feels that this plan is reasonable. Patient has been encouraged to increase his fluid intake. They will return to the emergency department for any fever, pain, vomiting or abnormal behavior. Otherwise the patient will follow up with his primary care provider as scheduled. Differential Diagnosis: Differential diagnosis considered includes dehydration, metabolic abnormality, renal failure, urinary tract infection, progressive metastatic disease - Data Points Laboratory Results: Laboratory Results 05/10/18 11:00 05/10/18 05/10/18 05/10/18 12:10 11:06 11:00 WBC 9.93 10^3/uL H 10^3/uL (3.80-9.50) RBC 4.10 10^6/uL L 10^6/uL (4.40-6.38) Hgb 13.9 g/dL g/dL (13.7-17.5) POC Hgb 14.3 gm/dL gm/dL (13.7-17.5) Hct 42.0 % % (40.0-51.0) POC Hct 42 % % (40-51) MCV 102.4 fL H fL (81.5-99.8) MCH 33.9 pg pg (27.9-34.1) MCHC 33.1 g/dL g/dL (32.4-36.7) RDW 13.0 % % (11.5-15.2) Plt Count 152 10^3/uL 10^3/uL (150-400) MPV 9.4 fL fL (8.7-11.7) Neut % (Auto) 78.4 % H % (39.3-74.2) Lymph % (Auto) 13.1 % L % (15.0-45.0) [place] % (Auto) 6.5 % % (4.5-13.0) Eos % (Auto) 0.8 % % (0.6-7.6) Baso % (Auto) 0.4 % % (0.3-1.7) Nucleat RBC Rel Count 0.0 % % (0.0-0.2) Absolute Neuts (auto) 7.78 10^3/uL H 10^3/uL (1.70-6.50) Absolute Lymphs (auto) 1.30 10^3/uL 10^3/uL (1.00-3.00) Absolute Monos (auto) 0.65 10^3/uL 10^3/uL (0.30-0.80) Absolute Eos (auto) 0.08 10^3/uL 10^3/uL (0.03-0.40) Absolute Basos (auto) 0.04 10^3/uL 10^3/uL (0.02-0.10) Absolute Nucleated RBC 0.00 10^3/uL 10^3/uL (0-0.01) Immature Gran % 0.8 % % (0.0-1.1) Immature Gran # 0.08 10^3/uL 10^3/uL (0.00-0.10) POC Sodium 138 mEq/L mEq/L (135-145) POC Potassium 4.0 mEq/L mEq/L (3.3-5.0) POC Chloride 104 mEq/L mEq/L (97-110) POC BUN 22 mg/dL mg/dL (7-23) POC Creatinine 1.1 mg/dL mg/dL (0.7-1.3) POC Glucose 104 mg/dL H mg/dL (70-100) Urine Color PALE YELLOW Urine Appearance HAZY Urine pH 6.0 (5.0-7.5) Ur Specific [place] 1.005 (1.002-1.030) Urine Protein NEGATIVE (NEGATIVE) Urine Ketones NEGATIVE (NEGATIVE) Urine Blood NEGATIVE (NEGATIVE) Urine Nitrate NEGATIVE (NEGATIVE) Urine Bilirubin NEGATIVE (NEGATIVE) Urine Urobilinogen NEGATIVE EU EU (0.2-1.0) Ur Leukocyte Esterase NEGATIVE (NEGATIVE) Urine Glucose NEGATIVE (NEGATIVE) Medications Given: Discontinued Medications Sodium Chloride (Ns) 1,000 mls @ 0 mls/hr IV EDNOW ONE; Wide Open PRN Reason: Protocol Stop: 05/10/18 10:59 Last Admin: 05/10/18 11:09 Dose: 1,000 mls Point of Care Test Results: Chemistry 05/10/18 11:06 POC Sodium 138 mEq/L mEq/L (135-145) POC Potassium 4.0 mEq/L mEq/L (3.3-5.0) POC Chloride 104 mEq/L mEq/L (97-110) POC BUN 22 mg/dL mg/dL (7-23) POC Creatinine 1.1 mg/dL mg/dL (0.7-1.3) POC Glucose 104 mg/dL H mg/dL (70-100) ISTAT H&H 05/10/18 11:06 POC Hgb 14.3 gm/dL gm/dL (13.7-17.5) POC Hct 42 % % (40-51) Departure - Departure Disposition: Home, Routine, Self-Care Clinical Impression: Dehydration, Confusion Condition: Good Instructions: Dehydration (ED) Additional Instructions: 1. Please return to the emergency department for fever, pain, vomiting or other concerns. 2. Please be sure to drink 4-6 glasses of water a day with adequate caloric intake. 3. Please follow-up with your primary care provider. I do believe dehydration is contributing to your intermittent weakness and confusion. Referrals: TO BENJAMIN MD [Primary Care Provider] - As per Instructions
[2018-05-10] MEDS ORDERED: NS 1,000 ML IV ONE ×2 (10:58→12:09)
[2018-05-10 11:26] LABS: PLATELET COUNT 152 10^3/uL (150-400)
[2018-05-10 14:05] VITALS: BP 152/69
== END 2018-05-10 14:04 | disposition home or self-care (01) ==
DX: E86.0 Dehydration (principal); R41.0 Disorientation, unspecified; R53.1 Weakness; R19.7 Diarrhea, unspecified
CPT/HCPCS: 82435-PO; 82565-PO; 82947-PO; 84132-PO; 84295-PO; 84520-PO; 85014-PO